=== PATIENT | male | born 1945 | race African-American/Black ===

== ENCOUNTER 2019-03-02 18:54 | Inpatient (IN) ==
[2019-03-02] MEDS ORDERED: SODIUM CHLORIDE 0.9% 500 ML IV STA (19:46)
[2019-03-02 19:59] LABS: Basophils # 0.1 10*3/uL (0.0-0.2); Basophils % 0.2 % (0.0-0.8); Hematocrit 26.2 VOL% (42.0-52.0); Hemoglobin 8.8 GM/DL (14.0-18.0); Immature Granulocytes % 1.2 %; Immature Granulocytes Absolute 0.36 #; Lymphocytes # 0.4 10*3/uL (1.4-4.0); Lymphocytes % 1.3 % (21.2-54.2); Mean Corpuscular HGB Conc 33.6 GM/DL (32-36); Mean Corpuscular Volume 91.6 FL (87-102); Mean Platelet Volume 8.7 FL (9.6-12.0); Neutrophils % 92.3 % (38.7-73.9); Platelet Count 327 T/CUMM (130-400); Red Blood Count 2.86 MC/CUMM (3.8-5.5); Red Cell Distribution Width 14.6 % (9.3-17.3); White Blood Count 30.3 T/CUMM (4-12)
[2019-03-02 20:18] LABS: Band Neutrophils 3 % (0-10); Lymphocytes 1 % (20-55); Segmented Neutrophils 90 % (50-85); Total Cells Counted 100
[2019-03-02 20:19] LABS: Platelet Estimate Adequate
[2019-03-02 20:35] LABS: Alanine Aminotransferase 64 U/L (16-61); Albumin 2.1 G/DL (3.4-5.0); Alkaline Phosphatase 107 U/L (45-117); Aspartate Amino Transferase 59 U/L (0-37); Bilirubin,Total < 0.39 MG/DL (0.2-1.0); Blood Urea Nitrogen 64 MG/DL (7-18); Calcium 8.3 MG/DL (8.5-10.1); Estimated Glom Filtration Rate 23 ML/MIN; Glucose 130 MG/DL (74-106); Osmolality,Calculated 285.4 MOS/KG (273-304); Thyroid Stimulating Hormone 0.352 uIU/ml (0.358-3.74)
[2019-03-02 21:04] LABS: Apearance,Urine Slightly Hazy (Clear); Bacteria,Urine Many /HPF (Few); Bilirubin,Urine Negative (Negative); Blood, Urine Small mg/dL (Negative); Glucose,Urine (UA) Negative (Negative); Hyaline Casts,Urine 23 /LPF (0-3); Ketones,Urine Negative (Negative); Mucus,Urine Occasional /LPF (Occasional); Nitrite,Urine Negative (Negative); Protein,Urine Negative; RBC,Urine 2 /HPF (0-4); Squamous Epithelial Cell,Urine Occasional /HPF (0-10); Urine Color Yellow (Yellow); Urine Specific Gravity 1.014 (1.001-1.035); Urine Urobilinogen < 2.0 EU/DL (0.2-1.0); WBC,Urine 11 /HPF (0-6)
[2019-03-02] MEDS ORDERED: VANCOMYCIN INJ 1,500 MG in SODIUM CHLORIDE 0.9% 250 ML IV STA (21:44)
[2019-03-02] MEDS ORDERED: CEFEPIME 1,000 MG in SODIUM CHLORIDE 0.9% 100 ML IV STA (21:45)
[2019-03-02] MEDS ORDERED: VANCOMYCIN 1,000 MG VIAL ONE (21:53)
[2019-03-02] MEDS ORDERED: ONDANSETRON 4 MG/2 ML VIAL IV PRN (23:12)
[2019-03-02] MEDS ORDERED: ACETAMINOPHEN 325 MG TABLET PO PRN (23:12)
[2019-03-02] MEDS ORDERED: guaiFENesin/DM ER 600-30 MG TABLET PO PRN (23:12)
[2019-03-02] MEDS ORDERED: DEXTROSE 50% 25 GM/50 ML SYRINGE IV PRN (23:12)
[2019-03-02] MEDS ORDERED: DOCUSATE SODIUM 100 MG CAPSULE PO PRN (23:12)
[2019-03-02] MEDS ORDERED: PROMETHAZINE 25 MG TABLET PO PRN (23:12)
[2019-03-02] MEDS ORDERED: GLUCAGON 1 MG VIAL IM PRN (23:12)
[2019-03-03] MEDS: metroNIDAZOLE INJ 500 MG in PREMIX 1 EACH IV SCH ×3 (02:08→15:53)
[2019-03-03] MEDS: SODIUM CHLORIDE 0.9% 1,000 ML IV SCH ×3 (02:08→23:21)
[2019-03-03] MEDS: HEPARIN 5,000 UNIT/1 ML VIAL SUBCUT SCH ×4 (03:10→23:29)
[2019-03-03] MEDS: INSULIN LISPRO 100 UNIT/ML SUBCUT SCH ×5 (03:38→23:36)
[2019-03-03 05:07] LABS: Basophils % 0.1 % (0.0-0.8); Eosinophils # 0.1 10*3/uL (0.0-0.87); Eosinophils % 0.2 % (0.00-10.9); Hematocrit 26.7 VOL% (42.0-52.0); Hemoglobin 8.8 GM/DL (14.0-18.0); Immature Granulocytes % 0.9 %; Immature Granulocytes Absolute 0.21 #; Lymphocytes # 0.5 10*3/uL (1.4-4.0); Lymphocytes % 2.2 % (21.2-54.2); Mean Corpuscular Volume 91.1 FL (87-102); Mean Platelet Volume 8.9 FL (9.6-12.0); Monocytes % 4.8 % (1.7-12.7); Neutrophils % 91.8 % (38.7-73.9); Platelet Count 355 T/CUMM (130-400); Red Blood Count 2.93 MC/CUMM (3.8-5.5); Red Cell Distribution Width 14.5 % (9.3-17.3); White Blood Count 22.7 T/CUMM (4-12)
[2019-03-03 05:40] LABS: Calcium 8.4 MG/DL (8.5-10.1); Osmolality,Calculated 291.7 MOS/KG (273-304)
[2019-03-03 05:47] LABS: Anisocytosis 1+; Band Neutrophils 1 % (0-10); Lymphocytes 5 % (20-55); Ovalocytes Few; Segmented Neutrophils 90 % (50-85); Total Cells Counted 100
[2019-03-03 05:48] LABS: Platelet Estimate Normal
[2019-03-03] MEDS: CEFEPIME 1,000 MG in SODIUM CHLORIDE 0.9% 100 ML IV SCH ×2 (09:55→23:20)
[2019-03-03] MEDS: PANTOPRAZOLE 40 MG TABLET PO SCH (13:08)
[2019-03-03] MEDS: FERROUS SULFATE 325 MG TABLET PO SCH ×2 (15:52→23:25)
[2019-03-03] MEDS: ISOSORBIDE DINITRATE 20 MG TABLET PO SCH (23:22)
[2019-03-03] MEDS: risperiDONE 0.25 MG TABLET PO SCH (23:23)
[2019-03-03] MEDS: buPROPion 75 MG TABLET PO SCH (23:24)
[2019-03-03] MEDS: OMEGA 3 ACID ETHYL ESTERS 1 GM CAPSULE PO SCH (23:25)
[2019-03-03] MEDS: CARBOXYMETHYLCELLULOSE 1% OPH SOLN BOTH EYES SCH (23:27)
[2019-03-04] MEDS: dilTIAZem Drip 125 MG/125 ML PREMIX IV SCH (00:37)
[2019-03-04] MEDS: metroNIDAZOLE INJ 500 MG in PREMIX 1 EACH IV SCH ×4 (00:39→23:29)
[2019-03-04 05:59] LABS: Basophils % 0.2 % (0.0-0.8); Hematocrit 30.3 VOL% (42.0-52.0); Hemoglobin 9.9 GM/DL (14.0-18.0); Immature Granulocytes Absolute 0.52 #; Lymphocytes # 0.4 10*3/uL (1.4-4.0); Lymphocytes % 2.4 % (21.2-54.2); Mean Corpuscular HGB Conc 32.7 GM/DL (32-36); Mean Corpuscular Volume 92.9 FL (87-102); Monocytes % 6.1 % (1.7-12.7); NRBC # 0.02 10*3/uL; Neutrophils % 88.3 % (38.7-73.9); Platelet Count 447 T/CUMM (130-400); Red Blood Count 3.26 MC/CUMM (3.8-5.5); Red Cell Distribution Width 15.1 % (9.3-17.3); White Blood Count 17.3 T/CUMM (4-12)
[2019-03-04 06:18] LABS: Calcium 8.5 MG/DL (8.5-10.1)
[2019-03-04] MEDS: SODIUM CHLORIDE 0.9% 1,000 ML IV SCH ×2 (06:31→23:27)
[2019-03-04 06:33] LABS: Lymphocytes 2 % (20-55); Platelet Estimate Adequate; Segmented Neutrophils 92 % (50-85); Total Cells Counted 100
[2019-03-04 06:34] LABS: Burr Cells Slight
[2019-03-04] MEDS: INSULIN LISPRO 100 UNIT/ML SUBCUT SCH ×4 (08:13→21:20)
[2019-03-04] MEDS: CEFEPIME 1,000 MG in SODIUM CHLORIDE 0.9% 100 ML IV SCH ×2 (09:05→21:21)
[2019-03-04] MEDS: FERROUS SULFATE 325 MG TABLET PO SCH ×4 (09:06→21:19)
[2019-03-04] MEDS: PANTOPRAZOLE 40 MG TABLET PO SCH (09:06)
[2019-03-04] MEDS: ISOSORBIDE DINITRATE 20 MG TABLET PO SCH ×2 (09:06→21:20)
[2019-03-04] MEDS: predniSONE 5 MG TABLET PO SCH (09:06)
[2019-03-04] MEDS: buPROPion 75 MG TABLET PO SCH ×2 (09:06→21:21)
[2019-03-04] MEDS: OMEGA 3 ACID ETHYL ESTERS 1 GM CAPSULE PO SCH ×2 (09:06→21:21)
[2019-03-04] MEDS: OXcarbazepine 300 MG TABLET PO SCH (09:06)
[2019-03-04] MEDS: ASPIRIN EC 81 MG TABLET PO SCH (09:06)
[2019-03-04] MEDS: CARBOXYMETHYLCELLULOSE 1% OPH SOLN BOTH EYES SCH ×2 (09:06→21:21)
[2019-03-04] MEDS: HEPARIN 5,000 UNIT/1 ML VIAL SUBCUT SCH (09:07)
[2019-03-04] MEDS: METOPROLOL TARTRATE 100 MG TABLET PO SCH ×2 (09:15→21:22)
[2019-03-04] MEDS: VANCOMYCIN INJ 1,500 MG in SODIUM CHLORIDE 0.9% 500 ML IV SCH (11:35)
[2019-03-04] MEDS ORDERED: AMIODARONE INJ 450 MG in DEXTROSE 5% 241 ML IV SCH (13:00)
[2019-03-04] MEDS: APIXABAN 5 MG TABLET PO SCH ×2 (13:36→21:19)
[2019-03-04] MEDS: AMIODARONE INJ 450 MG in DEXTROSE 5% 241 ML IV SCH (19:10)
[2019-03-04] MEDS: risperiDONE 0.25 MG TABLET PO SCH (21:21)
[2019-03-04] MEDS ORDERED: VANCOMYCIN INJ 1,000 MG in SODIUM CHLORIDE 0.9% 250 ML IV SCH (22:00)
[2019-03-05 06:12] LABS: Risk Ratio 3.87; VLDL CHOLESTEROL 15.6 MG/DL
[2019-03-05] MEDS: INSULIN LISPRO 100 UNIT/ML SUBCUT SCH ×4 (08:47→21:36)
[2019-03-05] MEDS: metroNIDAZOLE INJ 500 MG in PREMIX 1 EACH IV SCH (09:38)
[2019-03-05] MEDS: ISOSORBIDE DINITRATE 20 MG TABLET PO SCH ×2 (09:42→21:36)
[2019-03-05] MEDS: OMEGA 3 ACID ETHYL ESTERS 1 GM CAPSULE PO SCH ×2 (09:42→21:36)
[2019-03-05] MEDS: predniSONE 5 MG TABLET PO SCH (09:42)
[2019-03-05] MEDS: AMIODARONE 200 MG TABLET PO SCH ×2 (09:42→21:36)
[2019-03-05] MEDS: FERROUS SULFATE 325 MG TABLET PO SCH ×3 (09:42→21:36)
[2019-03-05] MEDS: buPROPion 75 MG TABLET PO SCH ×2 (09:42→21:36)
[2019-03-05] MEDS: PANTOPRAZOLE 40 MG TABLET PO SCH (09:42)
[2019-03-05] MEDS: APIXABAN 5 MG TABLET PO SCH ×2 (09:42→21:36)
[2019-03-05] MEDS: OXcarbazepine 300 MG TABLET PO SCH (09:43)
[2019-03-05] MEDS: METOPROLOL TARTRATE 100 MG TABLET PO SCH ×2 (09:43→21:36)
[2019-03-05] MEDS: CEFEPIME 1,000 MG in SODIUM CHLORIDE 0.9% 100 ML IV SCH (09:43)
[2019-03-05] MEDS: CARBOXYMETHYLCELLULOSE 1% OPH SOLN BOTH EYES SCH ×2 (09:43→21:36)
[2019-03-05] MEDS: ASPIRIN EC 81 MG TABLET PO SCH (09:43)
[2019-03-05] MEDS: dilTIAZem Drip 125 MG/125 ML PREMIX IV SCH (09:43)
[2019-03-05] MEDS: VANCOMYCIN INJ 1,500 MG in SODIUM CHLORIDE 0.9% 500 ML IV SCH (11:32)
[2019-03-05] MEDS: AMIODARONE INJ 450 MG in DEXTROSE 5% 241 ML IV SCH (12:54)
[2019-03-05] MEDS ORDERED: AMPICILLIN INJ 1,000 MG in SODIUM CHLORIDE 0.9% 100 ML IV SCH (14:08)
[2019-03-05] MEDS: AMPICILLIN INJ 1,000 MG in SODIUM CHLORIDE 0.9% 100 ML IV SCH ×2 (14:15→21:35)
[2019-03-05] MEDS: risperiDONE 0.25 MG TABLET PO SCH (21:36)
[2019-03-06] MEDS: AMIODARONE INJ 450 MG in DEXTROSE 5% 241 ML IV SCH (01:46)
[2019-03-06] MEDS: dilTIAZem Drip 125 MG/125 ML PREMIX IV SCH (01:46)
[2019-03-06] MEDS: AMPICILLIN INJ 1,000 MG in SODIUM CHLORIDE 0.9% 100 ML IV SCH ×2 (02:11→09:43)
[2019-03-06 04:40] LABS: Basophils # 0.1 10*3/uL (0.0-0.2); Basophils % 0.3 % (0.0-0.8); Eosinophils # 0.1 10*3/uL (0.0-0.87); Eosinophils % 0.4 % (0.00-10.9); Hematocrit 28.8 VOL% (42.0-52.0); Hemoglobin 9.6 GM/DL (14.0-18.0); Immature Granulocytes % 5.1 %; Immature Granulocytes Absolute 0.94 #; Lymphocytes # 0.6 10*3/uL (1.4-4.0); Mean Corpuscular HGB Conc 33.3 GM/DL (32-36); Mean Platelet Volume 8.3 FL (9.6-12.0); NRBC # 0.04 10*3/uL; Neutrophils % 86.2 % (38.7-73.9); Platelet Count 467 T/CUMM (130-400); Red Blood Count 3.13 MC/CUMM (3.8-5.5); Red Cell Distribution Width 15.3 % (9.3-17.3); White Blood Count 18.5 T/CUMM (4-12)
[2019-03-06 05:10] LABS: Band Neutrophils 1 % (0-10); Hypochromasia 1+; Lymphocytes 6 % (20-55); Ovalocytes Slight; Platelet Estimate Adequate; Segmented Neutrophils 87 % (50-85); Total Cells Counted 100
[2019-03-06 05:11] LABS: Calcium 7.9 MG/DL (8.5-10.1); Osmolality,Calculated 281.3 MOS/KG (273-304)
[2019-03-06] MEDS ORDERED: POTASSIUM CHLORIDE 20 MEQ TABLET PO PRN (07:32)
[2019-03-06] MEDS ORDERED: POTASSIUM CHLORIDE 20 MEQ TABLET PO ONE (09:01)
[2019-03-06] MEDS: ISOSORBIDE DINITRATE 20 MG TABLET PO SCH (09:39)
[2019-03-06] MEDS: ASPIRIN EC 81 MG TABLET PO SCH (09:39)
[2019-03-06] MEDS: OXcarbazepine 300 MG TABLET PO SCH (09:39)
[2019-03-06] MEDS: OMEGA 3 ACID ETHYL ESTERS 1 GM CAPSULE PO SCH (09:39)
[2019-03-06] MEDS: AMIODARONE 200 MG TABLET PO SCH (09:40)
[2019-03-06] MEDS: predniSONE 5 MG TABLET PO SCH (09:41)
[2019-03-06] MEDS: APIXABAN 5 MG TABLET PO SCH (09:41)
[2019-03-06] MEDS: PANTOPRAZOLE 40 MG TABLET PO SCH (09:41)
[2019-03-06] MEDS: FERROUS SULFATE 325 MG TABLET PO SCH (09:41)
[2019-03-06] MEDS: METOPROLOL TARTRATE 100 MG TABLET PO SCH (09:42)
[2019-03-06] MEDS: buPROPion 75 MG TABLET PO SCH (09:42)
[2019-03-06] MEDS: INSULIN LISPRO 100 UNIT/ML SUBCUT SCH ×2 (09:57→12:23)
[2019-03-06] MEDS: CARBOXYMETHYLCELLULOSE 1% OPH SOLN BOTH EYES SCH (10:02)
[2019-03-06] MEDS ORDERED: LEVOFLOXACIN 500 MG TABLET PO SCH (11:00)
[2019-03-06 11:59] VITALS: BP 158/73
[2019-03-10] MEDS ORDERED: ERGOCALCIFEROL 50,000 UNIT CAPSULE PO SCH (09:00)
== END 2019-03-06 14:40 | DRG 871 ==
LOC: EDUNIT# → N.ED 18:54 → SUATTDRO 23:12 → N.EDINP 23:12 → N.TELEN 03-03 00:52
PROVIDERS: ADMIT Internal Medicine; ATTEND Internal Medicine

== ENCOUNTER 2019-03-14 16:47 | Inpatient (IN) ==
[2019-03-14] MEDS ORDERED: VANCOMYCIN INJ 1,000 MG in SODIUM CHLORIDE 0.9% 250 ML IV STA (17:11)
[2019-03-14 18:09] LABS: Basophils # 0.1 10*3/uL (0.0-0.2); Basophils % 0.4 % (0.0-0.8); Eosinophils # 0.2 10*3/uL (0.0-0.87); Eosinophils % 1.5 % (0.00-10.9); Hemoglobin 9.9 GM/DL (14.0-18.0); Immature Granulocytes % 1.3 %; Immature Granulocytes Absolute 0.16 #; Lymphocytes # 0.6 10*3/uL (1.4-4.0); Lymphocytes % 4.8 % (21.2-54.2); Mean Corpuscular HGB Conc 31.9 GM/DL (32-36); Mean Corpuscular Volume 95.1 FL (87-102); Mean Platelet Volume 7.7 FL (9.6-12.0); Monocytes % 4.1 % (1.7-12.7); Neutrophils % 87.9 % (38.7-73.9); Platelet Count 726 T/CUMM (130-400); Red Blood Count 3.26 MC/CUMM (3.8-5.5); White Blood Count 12.2 T/CUMM (4-12)
[2019-03-14 18:17] LABS: PT Patient Result 10.7 SECS (9.6-12.2)
[2019-03-14 18:21] LABS: Alanine Aminotransferase 24 U/L (16-61); Albumin 2.3 G/DL (3.4-5.0); Alkaline Phosphatase 84 U/L (45-117); Amylase 154 U/L (25-115); Aspartate Amino Transferase 16 U/L (0-37); Bilirubin,Total < 0.39 MG/DL (0.2-1.0); Blood Urea Nitrogen 18 MG/DL (7-18); Calcium 8.7 MG/DL (8.5-10.1); Estimated Glom Filtration Rate 49 ML/MIN; Glucose 132 MG/DL (74-106); Osmolality,Calculated 276.8 MOS/KG (273-304); Total Protein 7.4 G/DL (6.4-8.3)
[2019-03-14 18:32] LABS: Troponin I < 0.015 NG/ML (0.00-0.045)
[2019-03-14 18:41] LABS: Apearance,Urine CLEAR (Clear); Bilirubin,Urine Negative (Negative); Blood, Urine Negative (Negative); Glucose,Urine (UA) Negative (Negative); Hyaline Casts,Urine 7 /LPF (0-3); Ketones,Urine Negative (Negative); Mucus,Urine Occasional /LPF (Occasional); Nitrite,Urine Negative (Negative); Protein,Urine Negative; RBC,Urine 1 /HPF (0-4); Squamous Epithelial Cell,Urine Occasional /HPF (0-10); Urine Color Yellow (Yellow); Urine Urobilinogen < 2.0 EU/DL (0.2-1.0); WBC,Urine 2 /HPF (0-6)
[2019-03-14 19:12] LABS: Eosinophils 1 % (0-10); Lymphocytes 7 % (20-55); Segmented Neutrophils 87 % (50-85); Total Cells Counted 100
[2019-03-14 19:13] LABS: Platelet Estimate Increased; Polychromasia Few
[2019-03-14 19:14] LABS: Anisocytosis Slight; Macrocytosis 1+; Toxic Granulation 1+
[2019-03-14] MEDS ORDERED: GLUCAGON 1 MG VIAL IM PRN (21:44)
[2019-03-14] MEDS ORDERED: DOCUSATE SODIUM 100 MG CAPSULE PO PRN (21:44)
[2019-03-14] MEDS ORDERED: ACETAMINOPHEN 325 MG TABLET PO PRN (21:44)
[2019-03-14] MEDS ORDERED: ONDANSETRON 4 MG/2 ML VIAL IV PRN (21:44)
[2019-03-14] MEDS ORDERED: DEXTROSE 50% 25 GM/50 ML VIAL IV PRN (21:44)
[2019-03-14] MEDS: SODIUM CHLORIDE 0.9% 1,000 ML IV SCH (22:23)
[2019-03-14] MEDS: INSULIN REGULAR 100 UNIT/ML SUBCUT SCH (22:24)
[2019-03-15 06:25] LABS: Basophils # 0.1 10*3/uL (0.0-0.2); Basophils % 0.5 % (0.0-0.8); Eosinophils # 0.2 10*3/uL (0.0-0.87); Eosinophils % 1.9 % (0.00-10.9); Hematocrit 31.5 VOL% (42.0-52.0); Hemoglobin 9.8 GM/DL (14.0-18.0); Immature Granulocytes % 1.1 %; Immature Granulocytes Absolute 0.11 #; Lymphocytes # 0.7 10*3/uL (1.4-4.0); Lymphocytes % 6.5 % (21.2-54.2); Mean Corpuscular HGB Conc 31.1 GM/DL (32-36); Mean Corpuscular Volume 96.6 FL (87-102); Mean Platelet Volume 7.5 FL (9.6-12.0); Monocytes % 5.8 % (1.7-12.7); Neutrophils % 84.2 % (38.7-73.9); Platelet Count 628 T/CUMM (130-400); Red Blood Count 3.26 MC/CUMM (3.8-5.5); White Blood Count 10.3 T/CUMM (4-12)
[2019-03-15 06:38] LABS: Calcium 8.4 MG/DL (8.5-10.1); Osmolality,Calculated 278.4 MOS/KG (273-304)
[2019-03-15] MEDS: INSULIN REGULAR 100 UNIT/ML SUBCUT SCH ×4 (11:14→21:08)
[2019-03-15] MEDS: SODIUM CHLORIDE 0.9% 1,000 ML IV SCH (11:40)
[2019-03-15] MEDS ORDERED: LIDOCAINE 1%/EPI INJ 20 ML VIAL ONE (12:14)
[2019-03-15] MEDS ORDERED: BUPIVACAINE MPF 0.25% 30 ML VIAL ONE (12:15)
[2019-03-15] MEDS ORDERED: DIAZEPAM 5 MG TABLET PO ONE (12:39)
[2019-03-15] MEDS ORDERED: KETAMINE 500 MG/10 ML VIAL ONE (13:03)
[2019-03-15] MEDS ORDERED: MIDAZOLAM 2 MG/2 ML VIAL ONE (13:03)
[2019-03-15] MEDS: VANCOMYCIN INJ 1,250 MG in SODIUM CHLORIDE 0.9% 250 ML IV SCH (14:19)
[2019-03-15] MEDS: risperiDONE 0.25 MG TABLET PO SCH (21:06)
[2019-03-15] MEDS: METOPROLOL TARTRATE 100 MG TABLET PO SCH (21:06)
[2019-03-15] MEDS: AMIODARONE 200 MG TABLET PO SCH (21:06)
[2019-03-15] MEDS: buPROPion 75 MG TABLET PO SCH (21:07)
[2019-03-15] MEDS: ENALAPRIL 20 MG TABLET PO SCH (21:07)
[2019-03-15] MEDS: CARBOXYMETHYLCELLULOSE 1% OPH SOLN BOTH EYES SCH (21:08)
[2019-03-15] MEDS: OMEGA 3 ACID ETHYL ESTERS 1 GM CAPSULE PO SCH (21:08)
[2019-03-15] MEDS: ISOSORBIDE DINITRATE 20 MG TABLET PO SCH (21:08)
[2019-03-16 05:28] LABS: Basophils # 0.1 10*3/uL (0.0-0.2); Basophils % 0.5 % (0.0-0.8); Eosinophils # 0.2 10*3/uL (0.0-0.87); Eosinophils % 1.6 % (0.00-10.9); Hematocrit 27.5 VOL% (42.0-52.0); Hemoglobin 8.6 GM/DL (14.0-18.0); Lymphocytes # 0.6 10*3/uL (1.4-4.0); Lymphocytes % 5.8 % (21.2-54.2); Mean Corpuscular HGB Conc 31.3 GM/DL (32-36); Mean Corpuscular Volume 96.8 FL (87-102); Mean Platelet Volume 7.6 FL (9.6-12.0); Monocytes % 5.8 % (1.7-12.7); Neutrophils % 85.3 % (38.7-73.9); Platelet Count 557 T/CUMM (130-400); Red Blood Count 2.84 MC/CUMM (3.8-5.5); White Blood Count 10.3 T/CUMM (4-12)
[2019-03-16] MEDS: ASPIRIN EC 81 MG TABLET PO SCH (08:59)
[2019-03-16] MEDS: AMIODARONE 200 MG TABLET PO SCH ×2 (08:59→21:28)
[2019-03-16] MEDS: POLYETHYLENE GLYCOL POWDER 17 GM PACK PO SCH (08:59)
[2019-03-16] MEDS: sitaGLIPtin 25 MG TABLET PO SCH (08:59)
[2019-03-16] MEDS: ENALAPRIL 20 MG TABLET PO SCH ×2 (08:59→21:29)
[2019-03-16] MEDS: OMEGA 3 ACID ETHYL ESTERS 1 GM CAPSULE PO SCH ×2 (08:59→21:29)
[2019-03-16] MEDS: buPROPion 75 MG TABLET PO SCH ×2 (09:00→21:29)
[2019-03-16] MEDS: OXcarbazepine 300 MG TABLET PO SCH (09:00)
[2019-03-16] MEDS: predniSONE 5 MG TABLET PO SCH (09:00)
[2019-03-16] MEDS: ISOSORBIDE DINITRATE 20 MG TABLET PO SCH ×2 (09:01→21:28)
[2019-03-16] MEDS: CARBOXYMETHYLCELLULOSE 1% OPH SOLN BOTH EYES SCH ×2 (09:01→21:29)
[2019-03-16] MEDS: METOPROLOL TARTRATE 100 MG TABLET PO SCH ×2 (09:01→21:29)
[2019-03-16] MEDS: INSULIN REGULAR 100 UNIT/ML SUBCUT SCH ×4 (09:29→21:28)
[2019-03-16] MEDS: SODIUM CHLORIDE 0.9% 1,000 ML IV SCH (09:58)
[2019-03-16] MEDS: VANCOMYCIN INJ 1,250 MG in SODIUM CHLORIDE 0.9% 250 ML IV SCH (11:56)
[2019-03-16] MEDS: COLLAGENASE OINT 30 GM TUBE TOP SCH (13:13)
[2019-03-16] MEDS: risperiDONE 0.25 MG TABLET PO SCH (21:29)
[2019-03-17] MEDS: SODIUM CHLORIDE 0.9% 1,000 ML IV SCH ×3 (02:27→16:34)
[2019-03-17] MEDS: INSULIN REGULAR 100 UNIT/ML SUBCUT SCH ×4 (08:41→21:37)
[2019-03-17] MEDS: ASPIRIN EC 81 MG TABLET PO SCH (10:01)
[2019-03-17] MEDS: ISOSORBIDE DINITRATE 20 MG TABLET PO SCH ×2 (10:01→21:37)
[2019-03-17] MEDS: OXcarbazepine 300 MG TABLET PO SCH (10:02)
[2019-03-17] MEDS: METOPROLOL TARTRATE 100 MG TABLET PO SCH ×2 (10:02→21:47)
[2019-03-17] MEDS: predniSONE 5 MG TABLET PO SCH (10:03)
[2019-03-17] MEDS: OMEGA 3 ACID ETHYL ESTERS 1 GM CAPSULE PO SCH ×2 (10:03→21:47)
[2019-03-17] MEDS: AMIODARONE 200 MG TABLET PO SCH ×2 (10:03→21:47)
[2019-03-17] MEDS: sitaGLIPtin 25 MG TABLET PO SCH (10:03)
[2019-03-17] MEDS: ENALAPRIL 20 MG TABLET PO SCH ×2 (10:04→21:54)
[2019-03-17] MEDS: COLLAGENASE OINT 30 GM TUBE TOP SCH (10:09)
[2019-03-17] MEDS: buPROPion 75 MG TABLET PO SCH ×2 (10:09→21:47)
[2019-03-17] MEDS: CARBOXYMETHYLCELLULOSE 1% OPH SOLN BOTH EYES SCH ×2 (10:09→22:04)
[2019-03-17] MEDS: POLYETHYLENE GLYCOL POWDER 17 GM PACK PO SCH ×2 (10:10→14:16)
[2019-03-17] MEDS: VANCOMYCIN INJ 1,250 MG in SODIUM CHLORIDE 0.9% 250 ML IV SCH (14:22)
[2019-03-17] MEDS: risperiDONE 0.25 MG TABLET PO SCH (21:47)
[2019-03-18 06:15] LABS: Basophils % 0.4 % (0.0-0.8); Eosinophils # 0.2 10*3/uL (0.0-0.87); Eosinophils % 2.1 % (0.00-10.9); Hematocrit 24.5 VOL% (42.0-52.0); Hemoglobin 7.8 GM/DL (14.0-18.0); Immature Granulocytes Absolute 0.09 #; Lymphocytes # 0.8 10*3/uL (1.4-4.0); Lymphocytes % 8.4 % (21.2-54.2); Mean Corpuscular HGB Conc 31.8 GM/DL (32-36); Mean Corpuscular Volume 94.2 FL (87-102); Mean Platelet Volume 7.5 FL (9.6-12.0); Monocytes % 5.6 % (1.7-12.7); Neutrophils % 82.5 % (38.7-73.9); Platelet Count 391 T/CUMM (130-400); Red Cell Distribution Width 14.7 % (9.3-17.3); White Blood Count 9.1 T/CUMM (4-12)
[2019-03-18 06:32] LABS: Osmolality,Calculated 283.1 MOS/KG (273-304)
[2019-03-18] MEDS: ASPIRIN EC 81 MG TABLET PO SCH (08:46)
[2019-03-18] MEDS: INSULIN REGULAR 100 UNIT/ML SUBCUT SCH ×2 (08:46→12:57)
[2019-03-18] MEDS: OXcarbazepine 300 MG TABLET PO SCH (08:47)
[2019-03-18] MEDS: ISOSORBIDE DINITRATE 20 MG TABLET PO SCH (08:47)
[2019-03-18] MEDS: OMEGA 3 ACID ETHYL ESTERS 1 GM CAPSULE PO SCH (08:47)
[2019-03-18] MEDS: POLYETHYLENE GLYCOL POWDER 17 GM PACK PO SCH (08:47)
[2019-03-18] MEDS: sitaGLIPtin 25 MG TABLET PO SCH (08:49)
[2019-03-18] MEDS: buPROPion 75 MG TABLET PO SCH (08:49)
[2019-03-18] MEDS: predniSONE 5 MG TABLET PO SCH (08:49)
[2019-03-18] MEDS: METOPROLOL TARTRATE 100 MG TABLET PO SCH (08:50)
[2019-03-18] MEDS: ENALAPRIL 20 MG TABLET PO SCH (08:50)
[2019-03-18] MEDS: COLLAGENASE OINT 30 GM TUBE TOP SCH (08:51)
[2019-03-18] MEDS: AMIODARONE 200 MG TABLET PO SCH (08:51)
[2019-03-18] MEDS: SODIUM CHLORIDE 0.9% 1,000 ML IV SCH (08:52)
[2019-03-18] MEDS: CARBOXYMETHYLCELLULOSE 1% OPH SOLN BOTH EYES SCH (09:01)
[2019-03-18 11:20] VITALS: BP 129/67
[2019-03-22] MEDS ORDERED: ERGOCALCIFEROL 50,000 UNIT CAPSULE PO SCH (09:00)
== END 2019-03-18 14:05 | DRG 580 ==
LOC: EDUNIT# → N.ED 16:47 → SUATTDRO 19:31 → N.EDINP 19:31 → N.3E 20:40
PROVIDERS: ADMIT Internal Medicine; ATTEND Internal Medicine

== ENCOUNTER 2021-02-23 11:09 | Inpatient (IN) ==
[2021-02-23 14:19] LABS: Basophils % 0.2 % (0.0-0.8); Eosinophils # 0.1 10*3/uL (0.0-0.87); Eosinophils % 0.5 % (0.00-10.9); Hematocrit 28.1 VOL% (42.0-52.0); Immature Granulocytes % 0.7 %; Immature Granulocytes Absolute 0.07 #; Lymphocytes % 9.6 % (21.2-54.2); Mean Corpuscular Volume 94.3 FL (87-102); Mean Platelet Volume 8.6 FL (9.6-12.0); Monocytes % 8.3 % (1.7-12.7); Neutrophils % 80.7 % (38.7-73.9); Platelet Count 317 T/CUMM (130-400); Red Blood Count 2.98 MC/CUMM (3.8-5.5); Red Cell Distribution Width 14.6 % (9.3-17.3); White Blood Count 10.3 T/CUMM (4-12)
[2021-02-23 14:38] LABS: Alanine Aminotransferase 14 U/L (16-61); Albumin 2.6 G/DL (3.4-5.0); Alkaline Phosphatase 54 U/L (45-117); Aspartate Amino Transferase 12 U/L (0-37); Bilirubin,Total < 0.39 MG/DL (0.20-1.00); Blood Urea Nitrogen 40 MG/DL (7-18); Calcium 8.9 MG/DL (8.5-10.1); Carbon Dioxide 23 MMOL/L (21-32); Estimated Glom Filtration Rate 28 ML/MIN; Glucose 101 MG/DL (74-106); Osmolality,Calculated 282.8 MOS/KG (273-304); Potassium 3.9 MMOL/L (3.5-5.1); Sodium 137 MMOL/L (136-145); Total Protein 6.6 G/DL (6.4-8.2)
[2021-02-23 14:55] LABS: Ferritin 187.8 ng/mL (26-388)
[2021-02-23] MEDS ORDERED: SODIUM CHLORIDE 0.9% 1,000 ML IV STA (14:55)
[2021-02-23] MEDS ORDERED: AZITHROMYCIN INJ 500 MG in SODIUM CHLORIDE 0.9% 250 ML IV ONE (15:15)
[2021-02-23] MEDS ORDERED: ONDANSETRON 4 MG/2 ML VIAL IV PRN (15:15)
[2021-02-23] MEDS ORDERED: ACETAMINOPHEN 325 MG TABLET PO PRN (15:15)
[2021-02-23] MEDS ORDERED: SODIUM CHLORIDE 0.9% 1,000 ML IV SCH (15:30)
[2021-02-23] MEDS ORDERED: DEXTROSE 50% 25 GM/50 ML SYRINGE IV PRN (16:02)
[2021-02-23] MEDS ORDERED: GLUCAGON 1 MG VIAL IM PRN (16:02)
[2021-02-23] MEDS: INSULIN REGULAR 100 UNIT/ML SUBCUT SCH (17:19)
[2021-02-24] MEDS: INSULIN REGULAR 100 UNIT/ML SUBCUT SCH ×5 (00:09→21:08)
[2021-02-24] MEDS: FAMOTIDINE 20 MG TABLET PO SCH ×3 (02:30→21:08)
[2021-02-24] MEDS: ASCORBIC ACID 500 MG TABLET PO SCH ×3 (02:30→21:09)
[2021-02-24 07:25] LABS: Basophils % 0.3 % (0.0-0.8); Eosinophils # 0.1 10*3/uL (0.0-0.87); Eosinophils % 1.6 % (0.00-10.9); Hematocrit 28.8 VOL% (42.0-52.0); Hemoglobin 9.1 GM/DL (14.0-18.0); Immature Granulocytes % 0.6 %; Immature Granulocytes Absolute 0.04 #; Lymphocytes # 0.9 10*3/uL (1.4-4.0); Lymphocytes % 13.8 % (21.2-54.2); Mean Corpuscular HGB Conc 31.6 GM/DL (32-36); Mean Corpuscular Volume 94.1 FL (87-102); Mean Platelet Volume 8.5 FL (9.6-12.0); Monocytes % 9.1 % (1.7-12.7); Neutrophils % 74.6 % (38.7-73.9); Platelet Count 295 T/CUMM (130-400); Red Blood Count 3.06 MC/CUMM (3.8-5.5); Red Cell Distribution Width 14.5 % (9.3-17.3); White Blood Count 6.8 T/CUMM (4-12)
[2021-02-24 07:47] LABS: Alanine Aminotransferase 10 U/L (16-61); Albumin 2.4 G/DL (3.4-5.0); Alkaline Phosphatase 53 U/L (45-117); Aspartate Amino Transferase 11 U/L (0-37); Bilirubin,Total < 0.39 MG/DL (0.20-1.00); Blood Urea Nitrogen 35 MG/DL (7-18); Calcium 8.5 MG/DL (8.5-10.1); Carbon Dioxide 21 MMOL/L (21-32); Estimated Glom Filtration Rate 34 ML/MIN; Glucose 81 MG/DL (74-106); Osmolality,Calculated 287.3 MOS/KG (273-304); Potassium 3.8 MMOL/L (3.5-5.1); Sodium 141 MMOL/L (136-145); Total Protein 6.5 G/DL (6.4-8.2)
[2021-02-24] MEDS: CHOLECALCIFEROL 1,000 UNIT TABLET PO SCH (09:22)
[2021-02-24] MEDS: AZITHROMYCIN 250 MG TABLET PO SCH (09:22)
[2021-02-24] MEDS: DEXAMETHASONE 4 MG/1 ML VIAL IV SCH (09:22)
[2021-02-24] MEDS: ZINC GLUCONATE 50 MG TABLET PO SCH (09:22)
[2021-02-24] MEDS: CETIRIZINE 10 MG TABLET PO SCH (09:23)
[2021-02-24] MEDS: cefTRIAXone 1,000 MG in SODIUM CHLORIDE 0.9% 100 ML IV SCH (10:02)
[2021-02-24] MEDS: OMEGA 3 ACID ETHYL ESTERS 1 GM CAPSULE PO SCH (20:20)
[2021-02-24] MEDS: APIXABAN 5 MG TABLET PO SCH (20:20)
[2021-02-24] MEDS: risperiDONE 0.25 MG TABLET PO SCH (20:21)
[2021-02-24] MEDS: buPROPion 75 MG TABLET PO SCH (20:21)
[2021-02-24] MEDS: CARBOXYMETHYLCELLULOSE 1% OPH SOLN BOTH EYES SCH (20:21)
[2021-02-24] MEDS: MENTHOL/ZINC OXIDE OINT 71 GM JAR TOP SCH (21:08)
[2021-02-25 04:42] LABS: Basophils % 0.2 % (0.0-0.8); Eosinophils # 0.1 10*3/uL (0.0-0.87); Eosinophils % 1.2 % (0.00-10.9); Hematocrit 25.9 VOL% (42.0-52.0); Hemoglobin 8.3 GM/DL (14.0-18.0); Immature Granulocytes % 0.7 %; Immature Granulocytes Absolute 0.04 #; Lymphocytes # 0.7 10*3/uL (1.4-4.0); Lymphocytes % 12.9 % (21.2-54.2); Mean Corpuscular Volume 94.5 FL (87-102); Mean Platelet Volume 8.4 FL (9.6-12.0); Monocytes % 8.5 % (1.7-12.7); Neutrophils % 76.5 % (38.7-73.9); Platelet Count 255 T/CUMM (130-400); Red Blood Count 2.74 MC/CUMM (3.8-5.5); Red Cell Distribution Width 14.3 % (9.3-17.3); White Blood Count 5.7 T/CUMM (4-12)
[2021-02-25 05:04] LABS: Alanine Aminotransferase 10 U/L (16-61); Alkaline Phosphatase 41 U/L (45-117); Aspartate Amino Transferase 10 U/L (0-37); Bilirubin,Total < 0.39 MG/DL (0.20-1.00); Blood Urea Nitrogen 24 MG/DL (7-18); Calcium 7.6 MG/DL (8.5-10.1); Carbon Dioxide 20 MMOL/L (21-32); Estimated Glom Filtration Rate 50 ML/MIN; Glucose 79 MG/DL (74-106); Osmolality,Calculated 285.1 MOS/KG (273-304); Potassium 3.1 MMOL/L (3.5-5.1); Sodium 142 MMOL/L (136-145); Total Protein 5.4 G/DL (6.4-8.2)
[2021-02-25 05:14] LABS: Ferritin 189.9 ng/mL (26-388)
[2021-02-25] MEDS: LINACLOTIDE 145 MCG CAPSULE PO SCH (06:43)
[2021-02-25] MEDS: INSULIN REGULAR 100 UNIT/ML SUBCUT SCH ×4 (08:07→21:45)
[2021-02-25] MEDS: MENTHOL/ZINC OXIDE OINT 71 GM JAR TOP SCH ×3 (10:30→21:49)
[2021-02-25] MEDS: DEXAMETHASONE 4 MG/1 ML VIAL IV SCH (10:30)
[2021-02-25] MEDS: OMEGA 3 ACID ETHYL ESTERS 1 GM CAPSULE PO SCH ×2 (10:30→21:43)
[2021-02-25] MEDS: OXcarbazepine 300 MG TABLET PO SCH (10:30)
[2021-02-25] MEDS: buPROPion 75 MG TABLET PO SCH ×2 (10:30→21:44)
[2021-02-25] MEDS: CETIRIZINE 10 MG TABLET PO SCH (10:30)
[2021-02-25] MEDS: FUROSEMIDE 40 MG TABLET PO SCH (10:30)
[2021-02-25] MEDS: cefTRIAXone 1,000 MG in SODIUM CHLORIDE 0.9% 100 ML IV SCH (10:30)
[2021-02-25] MEDS: CHOLECALCIFEROL 1,000 UNIT TABLET PO SCH (10:30)
[2021-02-25] MEDS: APIXABAN 5 MG TABLET PO SCH ×2 (10:30→21:44)
[2021-02-25] MEDS: FAMOTIDINE 20 MG TABLET PO SCH ×2 (10:30→21:43)
[2021-02-25] MEDS: MULTIVITAMIN (CENTRUM) TABLET PO SCH (10:30)
[2021-02-25] MEDS: ZINC GLUCONATE 50 MG TABLET PO SCH (10:30)
[2021-02-25] MEDS: ASCORBIC ACID 500 MG TABLET PO SCH ×2 (10:30→21:43)
[2021-02-25] MEDS: AMIODARONE 200 MG TABLET PO SCH (10:30)
[2021-02-25] MEDS: POLYETHYLENE GLYCOL POWDER 17 GM PACK PO SCH (10:30)
[2021-02-25] MEDS: ASPIRIN EC 81 MG TABLET PO SCH (10:30)
[2021-02-25] MEDS: AZITHROMYCIN 250 MG TABLET PO SCH (10:30)
[2021-02-25] MEDS: CARBOXYMETHYLCELLULOSE 1% OPH SOLN BOTH EYES SCH ×2 (10:49→21:46)
[2021-02-25] MEDS: ALBUTEROL/IPRATROPIUM 3 ML NEB RESP TX SCH (14:47)
[2021-02-25] MEDS: AZITHROMYCIN INJ 500 MG in SODIUM CHLORIDE 0.9% 250 ML IV SCH (15:23)
[2021-02-25] MEDS ORDERED: FUROSEMIDE 40 MG/4 ML VIAL IV ONE (15:27)
[2021-02-25] MEDS: POTASSIUM CHLORIDE RIDER 10 MEQ/100 ML PREMIX IV SCH ×3 (16:59→21:47)
[2021-02-25] MEDS ORDERED: POTASSIUM CHLORIDE RIDER 10 MEQ/100 ML PREMIX IV SCH (19:30)
[2021-02-25] MEDS: risperiDONE 0.25 MG TABLET PO SCH (21:44)
[2021-02-25] MEDS: methylPREDNISolone SOD SUC 40 MG/1 ML VIAL IV SCH (21:45)
[2021-02-26] MEDS: ALBUTEROL/IPRATROPIUM 3 ML NEB RESP TX SCH ×3 (01:40→07:05)
[2021-02-26] MEDS: methylPREDNISolone SOD SUC 40 MG/1 ML VIAL IV SCH ×3 (05:40→21:33)
[2021-02-26 06:02] LABS: Basophils % 0.1 % (0.0-0.8); Hematocrit 30.4 VOL% (42.0-52.0); Hemoglobin 9.7 GM/DL (14.0-18.0); Immature Granulocytes % 0.8 %; Immature Granulocytes Absolute 0.06 #; Lymphocytes # 0.7 10*3/uL (1.4-4.0); Mean Corpuscular HGB Conc 31.9 GM/DL (32-36); Mean Corpuscular Volume 93.3 FL (87-102); Mean Platelet Volume 8.4 FL (9.6-12.0); Monocytes % 2.3 % (1.7-12.7); Neutrophils % 86.8 % (38.7-73.9); Platelet Count 315 T/CUMM (130-400); Red Blood Count 3.26 MC/CUMM (3.8-5.5); White Blood Count 7.1 T/CUMM (4-12)
[2021-02-26 06:21] LABS: Alanine Aminotransferase 12 U/L (16-61); Albumin 2.3 G/DL (3.4-5.0); Alkaline Phosphatase 48 U/L (45-117); Aspartate Amino Transferase 14 U/L (0-37); Bilirubin,Total < 0.39 MG/DL (0.20-1.00); Blood Urea Nitrogen 25 MG/DL (7-18); Calcium 8.6 MG/DL (8.5-10.1); Carbon Dioxide 22 MMOL/L (21-32); Estimated Glom Filtration Rate 40 ML/MIN; Glucose 175 MG/DL (74-106); Osmolality,Calculated 293.8 MOS/KG (273-304); Potassium 3.9 MMOL/L (3.5-5.1); Sodium 144 MMOL/L (136-145); Total Protein 6.8 G/DL (6.4-8.2)
[2021-02-26 06:32] LABS: Ferritin 223.9 ng/mL (26-388)
[2021-02-26] MEDS: LINACLOTIDE 145 MCG CAPSULE PO SCH (06:35)
[2021-02-26] MEDS: INSULIN REGULAR 100 UNIT/ML SUBCUT SCH ×4 (08:11→21:33)
[2021-02-26] MEDS: MULTIVITAMIN (CENTRUM) TABLET PO SCH (09:20)
[2021-02-26] MEDS: OXcarbazepine 300 MG TABLET PO SCH (09:21)
[2021-02-26] MEDS: OMEGA 3 ACID ETHYL ESTERS 1 GM CAPSULE PO SCH ×2 (09:21→21:32)
[2021-02-26] MEDS: CHOLECALCIFEROL 1,000 UNIT TABLET PO SCH (09:22)
[2021-02-26] MEDS: AMIODARONE 200 MG TABLET PO SCH (09:22)
[2021-02-26] MEDS: ASCORBIC ACID 500 MG TABLET PO SCH ×2 (09:22→21:32)
[2021-02-26] MEDS: FAMOTIDINE 20 MG TABLET PO SCH ×2 (09:22→21:32)
[2021-02-26] MEDS: ZINC GLUCONATE 50 MG TABLET PO SCH (09:22)
[2021-02-26] MEDS: CETIRIZINE 10 MG TABLET PO SCH (09:22)
[2021-02-26] MEDS: buPROPion 75 MG TABLET PO SCH ×2 (09:22→21:32)
[2021-02-26] MEDS: ASPIRIN EC 81 MG TABLET PO SCH (09:22)
[2021-02-26] MEDS: POLYETHYLENE GLYCOL POWDER 17 GM PACK PO SCH (09:23)
[2021-02-26] MEDS: FUROSEMIDE 40 MG TABLET PO SCH (09:23)
[2021-02-26] MEDS: APIXABAN 5 MG TABLET PO SCH ×2 (09:23→21:32)
[2021-02-26] MEDS: CARBOXYMETHYLCELLULOSE 1% OPH SOLN BOTH EYES SCH (09:24)
[2021-02-26] MEDS: MENTHOL/ZINC OXIDE OINT 71 GM JAR TOP SCH ×3 (09:24→21:33)
[2021-02-26] MEDS: cefTRIAXone 1,000 MG in SODIUM CHLORIDE 0.9% 100 ML IV SCH (09:24)
[2021-02-26] MEDS ORDERED: LINEZOLID INJ 600 MG/300 ML PREMIX IV SCH (10:30)
[2021-02-26] MEDS: ALBUTEROL INHALER 18 GM INH SCH ×2 (14:51→22:10)
[2021-02-26] MEDS: AZITHROMYCIN INJ 500 MG in SODIUM CHLORIDE 0.9% 250 ML IV SCH (14:53)
[2021-02-26] MEDS: risperiDONE 0.25 MG TABLET PO SCH (21:32)
[2021-02-26] MEDS: SENNA 8.6 MG TABLET PO SCH (21:32)
[2021-02-26] MEDS: MELATONIN 3 MG TABLET PO PRN (21:32)
[2021-02-27] MEDS: ALBUTEROL INHALER 18 GM INH SCH ×4 (00:30→21:09)
[2021-02-27 04:58] LABS: Hematocrit 28.8 VOL% (42.0-52.0); Hemoglobin 9.2 GM/DL (14.0-18.0); Immature Granulocytes % 1.7 %; Immature Granulocytes Absolute 0.19 #; Lymphocytes # 0.6 10*3/uL (1.4-4.0); Lymphocytes % 5.7 % (21.2-54.2); Mean Corpuscular HGB Conc 31.9 GM/DL (32-36); Mean Corpuscular Volume 93.2 FL (87-102); Mean Platelet Volume 8.6 FL (9.6-12.0); Monocytes % 2.3 % (1.7-12.7); Neutrophils % 90.3 % (38.7-73.9); Platelet Count 362 T/CUMM (130-400); Red Blood Count 3.09 MC/CUMM (3.8-5.5); Red Cell Distribution Width 14.3 % (9.3-17.3); White Blood Count 11.2 T/CUMM (4-12)
[2021-02-27 05:35] LABS: Alanine Aminotransferase 11 U/L (16-61); Albumin 2.5 G/DL (3.4-5.0); Alkaline Phosphatase 47 U/L (45-117); Aspartate Amino Transferase 18 U/L (0-37); Bilirubin,Total < 0.39 MG/DL (0.20-1.00); Blood Urea Nitrogen 29 MG/DL (7-18); Calcium 8.9 MG/DL (8.5-10.1); Carbon Dioxide 23 MMOL/L (21-32); Estimated Glom Filtration Rate 38 ML/MIN; Glucose 159 MG/DL (74-106); Osmolality,Calculated 291.1 MOS/KG (273-304); Potassium 3.9 MMOL/L (3.5-5.1); Sodium 142 MMOL/L (136-145); Total Protein 6.7 G/DL (6.4-8.2)
[2021-02-27 05:37] LABS: Ferritin 188.2 ng/mL (26-388)
[2021-02-27] MEDS: LINACLOTIDE 145 MCG CAPSULE PO SCH (06:27)
[2021-02-27] MEDS: methylPREDNISolone SOD SUC 40 MG/1 ML VIAL IV SCH (06:27)
[2021-02-27] MEDS: INSULIN REGULAR 100 UNIT/ML SUBCUT SCH ×4 (08:22→21:09)
[2021-02-27] MEDS: APIXABAN 5 MG TABLET PO SCH ×2 (10:17→20:56)
[2021-02-27] MEDS: OXcarbazepine 300 MG TABLET PO SCH (10:17)
[2021-02-27] MEDS: FUROSEMIDE 40 MG TABLET PO SCH (10:17)
[2021-02-27] MEDS: ASPIRIN EC 81 MG TABLET PO SCH (10:18)
[2021-02-27] MEDS: buPROPion 75 MG TABLET PO SCH ×2 (10:18→20:55)
[2021-02-27] MEDS: CETIRIZINE 10 MG TABLET PO SCH (10:18)
[2021-02-27] MEDS: AMIODARONE 200 MG TABLET PO SCH (10:18)
[2021-02-27] MEDS: ZINC GLUCONATE 50 MG TABLET PO SCH (10:18)
[2021-02-27] MEDS: ASCORBIC ACID 500 MG TABLET PO SCH ×2 (10:18→20:56)
[2021-02-27] MEDS: OMEGA 3 ACID ETHYL ESTERS 1 GM CAPSULE PO SCH ×2 (10:18→21:09)
[2021-02-27] MEDS: SENNA 8.6 MG TABLET PO SCH ×2 (10:19→20:55)
[2021-02-27] MEDS: MULTIVITAMIN (CENTRUM) TABLET PO SCH (10:19)
[2021-02-27] MEDS: POLYETHYLENE GLYCOL POWDER 17 GM PACK PO SCH (10:19)
[2021-02-27] MEDS: cefTRIAXone 1,000 MG in SODIUM CHLORIDE 0.9% 100 ML IV SCH (10:19)
[2021-02-27] MEDS: FAMOTIDINE 20 MG TABLET PO SCH ×2 (10:19→20:56)
[2021-02-27] MEDS: CHOLECALCIFEROL 1,000 UNIT TABLET PO SCH (10:19)
[2021-02-27] MEDS: MENTHOL/ZINC OXIDE OINT 71 GM JAR TOP SCH ×3 (10:38→21:09)
[2021-02-27] MEDS ORDERED: FUROSEMIDE 40 MG/4 ML VIAL IV ONE (12:36)
[2021-02-27] MEDS: AZITHROMYCIN INJ 500 MG in SODIUM CHLORIDE 0.9% 250 ML IV SCH (13:15)
[2021-02-27] MEDS: risperiDONE 0.25 MG TABLET PO SCH (20:56)
[2021-02-27] MEDS: MELATONIN 3 MG TABLET PO PRN (20:56)
[2021-02-28] MEDS: ALBUTEROL INHALER 18 GM INH SCH ×4 (02:02→20:32)
[2021-02-28] MEDS: LINACLOTIDE 145 MCG CAPSULE PO SCH (05:53)
[2021-02-28 05:57] LABS: Basophils % 0.2 % (0.0-0.8); Eosinophils % 0.1 % (0.00-10.9); Hematocrit 31.7 VOL% (42.0-52.0); Hemoglobin 9.9 GM/DL (14.0-18.0); Immature Granulocytes % 2.9 %; Immature Granulocytes Absolute 0.36 #; Lymphocytes # 1.2 10*3/uL (1.4-4.0); Lymphocytes % 9.4 % (21.2-54.2); Mean Corpuscular HGB Conc 31.2 GM/DL (32-36); Mean Corpuscular Volume 94.3 FL (87-102); Mean Platelet Volume 8.4 FL (9.6-12.0); Monocytes % 8.3 % (1.7-12.7); NRBC # 0.03 10*3/uL; Neutrophils % 79.1 % (38.7-73.9); Platelet Count 397 T/CUMM (130-400); Red Blood Count 3.36 MC/CUMM (3.8-5.5); Red Cell Distribution Width 14.6 % (9.3-17.3); White Blood Count 12.4 T/CUMM (4-12)
[2021-02-28 06:10] LABS: Ferritin 190.7 ng/mL (26-388)
[2021-02-28 06:11] LABS: Alanine Aminotransferase 73 U/L (16-61); Albumin 2.6 G/DL (3.4-5.0); Alkaline Phosphatase 49 U/L (45-117); Aspartate Amino Transferase 53 U/L (0-37); Bilirubin,Total < 0.39 MG/DL (0.20-1.00); Blood Urea Nitrogen 34 MG/DL (7-18); Calcium 8.9 MG/DL (8.5-10.1); Carbon Dioxide 24 MMOL/L (21-32); Estimated Glom Filtration Rate 38 ML/MIN; Glucose 107 MG/DL (74-106); Osmolality,Calculated 288.3 MOS/KG (273-304); Potassium 3.6 MMOL/L (3.5-5.1); Sodium 141 MMOL/L (136-145); Total Protein 6.8 G/DL (6.4-8.2)
[2021-02-28] MEDS: cefTRIAXone 1,000 MG in SODIUM CHLORIDE 0.9% 100 ML IV SCH (10:34)
[2021-02-28] MEDS: FAMOTIDINE 20 MG TABLET PO SCH ×2 (10:36→20:31)
[2021-02-28] MEDS: buPROPion 75 MG TABLET PO SCH ×2 (10:36→20:30)
[2021-02-28] MEDS: SENNA 8.6 MG TABLET PO SCH ×2 (10:36→20:31)
[2021-02-28] MEDS: OXcarbazepine 300 MG TABLET PO SCH (10:36)
[2021-02-28] MEDS: MULTIVITAMIN (CENTRUM) TABLET PO SCH (10:36)
[2021-02-28] MEDS: ASCORBIC ACID 500 MG TABLET PO SCH ×2 (10:37→20:31)
[2021-02-28] MEDS: CHOLECALCIFEROL 1,000 UNIT TABLET PO SCH (10:37)
[2021-02-28] MEDS: ZINC GLUCONATE 50 MG TABLET PO SCH (10:37)
[2021-02-28] MEDS: ASPIRIN EC 81 MG TABLET PO SCH (10:37)
[2021-02-28] MEDS: FUROSEMIDE 40 MG TABLET PO SCH (10:38)
[2021-02-28] MEDS: predniSONE 20 MG TABLET PO SCH (10:38)
[2021-02-28] MEDS: APIXABAN 5 MG TABLET PO SCH ×2 (10:38→20:31)
[2021-02-28] MEDS: CETIRIZINE 10 MG TABLET PO SCH (10:38)
[2021-02-28] MEDS: AMIODARONE 200 MG TABLET PO SCH (10:38)
[2021-02-28] MEDS: OMEGA 3 ACID ETHYL ESTERS 1 GM CAPSULE PO SCH ×2 (10:38→20:31)
[2021-02-28] MEDS: MENTHOL/ZINC OXIDE OINT 71 GM JAR TOP SCH ×3 (10:39→20:31)
[2021-02-28] MEDS: POLYETHYLENE GLYCOL POWDER 17 GM PACK PO SCH (10:39)
[2021-02-28] MEDS: INSULIN REGULAR 100 UNIT/ML SUBCUT SCH ×4 (11:28→20:32)
[2021-02-28] MEDS: AZITHROMYCIN INJ 500 MG in SODIUM CHLORIDE 0.9% 250 ML IV SCH (15:19)
[2021-02-28] MEDS: risperiDONE 0.25 MG TABLET PO SCH (20:30)
[2021-02-28] MEDS: MELATONIN 3 MG TABLET PO PRN (20:31)
[2021-03-01] MEDS: ALBUTEROL INHALER 18 GM INH SCH ×3 (01:45→17:10)
[2021-03-01 06:47] LABS: Basophils % 0.2 % (0.0-0.8); Eosinophils # 0.1 10*3/uL (0.0-0.87); Eosinophils % 0.9 % (0.00-10.9); Hematocrit 31.8 VOL% (42.0-52.0); Hemoglobin 10.2 GM/DL (14.0-18.0); Immature Granulocytes % 3.8 %; Immature Granulocytes Absolute 0.44 #; Lymphocytes % 8.3 % (21.2-54.2); Mean Corpuscular HGB Conc 32.1 GM/DL (32-36); Mean Corpuscular Volume 92.4 FL (87-102); Monocytes % 7.6 % (1.7-12.7); NRBC # 0.02 10*3/uL; Neutrophils % 79.2 % (38.7-73.9); Platelet Count 359 T/CUMM (130-400); Red Blood Count 3.44 MC/CUMM (3.8-5.5); Red Cell Distribution Width 14.6 % (9.3-17.3); White Blood Count 11.7 T/CUMM (4-12)
[2021-03-01 07:09] LABS: Alanine Aminotransferase 66 U/L (16-61); Albumin 2.4 G/DL (3.4-5.0); Alkaline Phosphatase 51 U/L (45-117); Aspartate Amino Transferase 31 U/L (0-37); Bilirubin,Total < 0.39 MG/DL (0.20-1.00); Blood Urea Nitrogen 39 MG/DL (7-18); Calcium 8.3 MG/DL (8.5-10.1); Carbon Dioxide 24 MMOL/L (21-32); Estimated Glom Filtration Rate 45 ML/MIN; Glucose 110 MG/DL (74-106); Osmolality,Calculated 292.1 MOS/KG (273-304); Potassium 3.6 MMOL/L (3.5-5.1); Sodium 142 MMOL/L (136-145); Total Protein 6.5 G/DL (6.4-8.2)
[2021-03-01] MEDS: INSULIN REGULAR 100 UNIT/ML SUBCUT SCH ×2 (08:29→12:11)
[2021-03-01] MEDS: POLYETHYLENE GLYCOL POWDER 17 GM PACK PO SCH (09:47)
[2021-03-01] MEDS: ASPIRIN EC 81 MG TABLET PO SCH (09:47)
[2021-03-01] MEDS: ASCORBIC ACID 500 MG TABLET PO SCH (09:48)
[2021-03-01] MEDS: CHOLECALCIFEROL 1,000 UNIT TABLET PO SCH (09:48)
[2021-03-01] MEDS: CETIRIZINE 10 MG TABLET PO SCH (09:48)
[2021-03-01] MEDS: buPROPion 75 MG TABLET PO SCH (09:48)
[2021-03-01] MEDS: OMEGA 3 ACID ETHYL ESTERS 1 GM CAPSULE PO SCH (09:49)
[2021-03-01] MEDS: FAMOTIDINE 20 MG TABLET PO SCH (09:49)
[2021-03-01] MEDS: MULTIVITAMIN (CENTRUM) TABLET PO SCH (09:49)
[2021-03-01] MEDS: SENNA 8.6 MG TABLET PO SCH (09:49)
[2021-03-01] MEDS: ZINC GLUCONATE 50 MG TABLET PO SCH (09:50)
[2021-03-01] MEDS: AMIODARONE 200 MG TABLET PO SCH (09:50)
[2021-03-01] MEDS: FUROSEMIDE 40 MG TABLET PO SCH (09:50)
[2021-03-01] MEDS: OXcarbazepine 300 MG TABLET PO SCH (09:50)
[2021-03-01] MEDS: APIXABAN 5 MG TABLET PO SCH (09:50)
[2021-03-01] MEDS: predniSONE 20 MG TABLET PO SCH (09:50)
[2021-03-01] MEDS: MENTHOL/ZINC OXIDE OINT 71 GM JAR TOP SCH ×2 (09:51→17:10)
[2021-03-01] MEDS: LINACLOTIDE 145 MCG CAPSULE PO SCH (09:51)
[2021-03-01] MEDS: cefTRIAXone 1,000 MG in SODIUM CHLORIDE 0.9% 100 ML IV SCH (11:16)
[2021-03-01] MEDS ORDERED: ISOSORBIDE DINITRATE 20 MG TABLET PO SCH (13:00)
[2021-03-01] MEDS ORDERED: LOSARTAN 50 MG TABLET PO SCH (13:00)
[2021-03-01] MEDS ORDERED: METOPROLOL TARTRATE 100 MG TABLET PO SCH (13:00)
[2021-03-01 16:05] VITALS: BP 95/61
== END 2021-03-01 16:18 | DRG 178 ==
LOC: EDUNIT# → SUATTDRO → EDBD → N.EDINP 11:09 → N.ED 11:09 → SUATTDRO 15:45 → N.5E 02-25 17:40 → SUATTDRO 02-27 15:05
PROVIDERS: ADMIT Internal Medicine; ATTEND Internal Medicine

== ENCOUNTER 2021-05-19 13:10 | Inpatient (IN) ==
[2021-05-19] MEDS ORDERED: VANCOMYCIN INJ 1,000 MG in SODIUM CHLORIDE 0.9% 250 ML IV STA (13:43)
[2021-05-19 13:52] LABS: Basophils % 0.4 % (0.0-0.8); Eosinophils # 0.2 10*3/uL (0.0-0.87); Hemoglobin 10.8 GM/DL (14.0-18.0); Immature Granulocytes % 0.5 %; Immature Granulocytes Absolute 0.04 #; Lymphocytes # 1.2 10*3/uL (1.4-4.0); Lymphocytes % 16.1 % (21.2-54.2); Mean Corpuscular HGB Conc 31.8 GM/DL (32-36); Mean Corpuscular Volume 96.3 FL (87-102); Mean Platelet Volume 8.4 FL (9.6-12.0); Monocytes % 4.4 % (1.7-12.7); Neutrophils % 75.6 % (38.7-73.9); Platelet Count 430 T/CUMM (130-400); Red Blood Count 3.53 MC/CUMM (3.8-5.5); Red Cell Distribution Width 15.1 % (9.3-17.3); White Blood Count 7.3 T/CUMM (4-12)
[2021-05-19 14:10] LABS: Alanine Aminotransferase 14 U/L (16-61); Albumin 2.9 G/DL (3.4-5.0); Alkaline Phosphatase 77 U/L (45-117); Aspartate Amino Transferase 15 U/L (0-37); Bilirubin,Total < 0.39 MG/DL (0.20-1.00); Blood Urea Nitrogen 30 MG/DL (7-18); Estimated Glom Filtration Rate 48 ML/MIN; Glucose 132 MG/DL (74-106); Osmolality,Calculated 284.5 MOS/KG (273-304); Potassium 4.4 MMOL/L (3.5-5.1); Sodium 139 MMOL/L (136-145); Total Protein 7.3 G/DL (6.4-8.2)
[2021-05-19 14:11] LABS: Carbon Dioxide 26 MMOL/L (21-32)
[2021-05-19] MEDS ORDERED: GLUCAGON 1 MG VIAL IM PRN (14:22)
[2021-05-19] MEDS ORDERED: ACETAMINOPHEN 325 MG TABLET PO PRN (14:22)
[2021-05-19] MEDS ORDERED: hydrALAZINE 20 MG/1 ML VIAL IV PRN (14:22)
[2021-05-19] MEDS ORDERED: LACTULOSE 20 GM/30 ML UDCUP PO PRN (14:22)
[2021-05-19] MEDS ORDERED: DOCUSATE SODIUM 100 MG CAPSULE PO PRN (14:22)
[2021-05-19] MEDS ORDERED: ALUMINUM/MAGNES/SIMETH MAX STR 30 ML UDCUP PO PRN (14:22)
[2021-05-19] MEDS ORDERED: ONDANSETRON 4 MG/2 ML VIAL IV PRN (14:22)
[2021-05-19] MEDS ORDERED: DEXTROSE 10% 250 ML BAG IV PRN (14:32)
[2021-05-19] MEDS: SODIUM CHLORIDE 0.9% 1,000 ML IV SCH (14:40)
[2021-05-19] MEDS ORDERED: ENOXAPARIN 30 MG/0.3 ML SYRINGE SUBCUT SCH (15:00)
[2021-05-19 15:03] LABS: Sedimentation Rate-Westergren 107 MM/HR (0-20)
[2021-05-19] MEDS: cefTRIAXone 1,000 MG in SODIUM CHLORIDE 0.9% 100 ML IV SCH (15:37)
[2021-05-19] MEDS ORDERED: VANCOMYCIN INJ 1,000 MG in SODIUM CHLORIDE 0.9% 250 ML IV ONE ×2 (16:00→17:00)
[2021-05-19] MEDS: INSULIN LISPRO 100 UNIT/ML SUBCUT SCH ×2 (16:28→22:08)
[2021-05-19] MEDS: risperiDONE 0.25 MG TABLET PO SCH (21:30)
[2021-05-19] MEDS: METOPROLOL TARTRATE 50 MG TABLET PO SCH (21:30)
[2021-05-19] MEDS: ISOSORBIDE DINITRATE 20 MG TABLET PO SCH (21:30)
[2021-05-19] MEDS: hydrALAZINE 10 MG TABLET PO SCH (21:31)
[2021-05-20 05:41] LABS: Basophils % 0.4 % (0.0-0.8); Eosinophils # 0.2 10*3/uL (0.0-0.87); Eosinophils % 3.5 % (0.00-10.9); Hematocrit 29.5 VOL% (42.0-52.0); Hemoglobin 9.5 GM/DL (14.0-18.0); Immature Granulocytes % 0.3 %; Immature Granulocytes Absolute 0.02 #; Lymphocytes # 1.2 10*3/uL (1.4-4.0); Lymphocytes % 17.7 % (21.2-54.2); Mean Corpuscular HGB Conc 32.2 GM/DL (32-36); Mean Corpuscular Volume 96.1 FL (87-102); Mean Platelet Volume 8.4 FL (9.6-12.0); Monocytes % 6.6 % (1.7-12.7); Neutrophils % 71.5 % (38.7-73.9); Platelet Count 411 T/CUMM (130-400); Red Blood Count 3.07 MC/CUMM (3.8-5.5); Red Cell Distribution Width 15.2 % (9.3-17.3); White Blood Count 6.8 T/CUMM (4-12)
[2021-05-20 06:10] LABS: Alanine Aminotransferase 10 U/L (16-61); Albumin 2.5 G/DL (3.4-5.0); Alkaline Phosphatase 71 U/L (45-117); Aspartate Amino Transferase 12 U/L (0-37); Bilirubin,Total < 0.39 MG/DL (0.20-1.00); Blood Urea Nitrogen 32 MG/DL (7-18); Calcium 8.5 MG/DL (8.5-10.1); Carbon Dioxide 27 MMOL/L (21-32); Estimated Glom Filtration Rate 40 ML/MIN; Glucose 89 MG/DL (74-106); Osmolality,Calculated 288.1 MOS/KG (273-304); Sodium 142 MMOL/L (136-145); Total Protein 6.1 G/DL (6.4-8.2)
[2021-05-20] MEDS: SODIUM CHLORIDE 0.9% 1,000 ML IV SCH ×3 (07:28→16:21)
[2021-05-20] MEDS: INSULIN LISPRO 100 UNIT/ML SUBCUT SCH ×4 (07:29→20:33)
[2021-05-20] MEDS: AMIODARONE 200 MG TABLET PO SCH (08:41)
[2021-05-20] MEDS: METOPROLOL TARTRATE 50 MG TABLET PO SCH ×2 (08:43→20:31)
[2021-05-20] MEDS ORDERED: VANCOMYCIN INJ 1,500 MG in SODIUM CHLORIDE 0.9% 500 ML IV PRN (08:52)
[2021-05-20] MEDS: OXcarbazepine 300 MG TABLET PO SCH (08:52)
[2021-05-20] MEDS: ASPIRIN CHEW 81 MG TABLET PO SCH (08:53)
[2021-05-20] MEDS: hydrALAZINE 10 MG TABLET PO SCH ×2 (08:53→20:32)
[2021-05-20] MEDS: PANTOPRAZOLE 40 MG TABLET PO SCH (08:54)
[2021-05-20] MEDS: ISOSORBIDE DINITRATE 20 MG TABLET PO SCH ×2 (08:54→20:32)
[2021-05-20] MEDS: predniSONE 1 MG TABLET PO SCH (11:46)
[2021-05-20] MEDS: buPROPion 75 MG TABLET PO SCH ×2 (11:47→20:32)
[2021-05-20] MEDS ORDERED: MIDAZOLAM 2 MG/2 ML VIAL ONE (11:53)
[2021-05-20] MEDS ORDERED: fentaNYL 100 MCG/2 ML VIAL ONE (11:53)
[2021-05-20] MEDS ORDERED: KETAMINE 500 MG/10 ML VIAL ONE (11:53)
[2021-05-20] MEDS ORDERED: LIDOCAINE 1% 50 ML VIAL ONE (11:59)
[2021-05-20] MEDS: DOCUSATE SODIUM 100 MG CAPSULE PO SCH ×4 (12:21→20:32)
[2021-05-20] MEDS ORDERED: SODIUM CHLORIDE 0.9% 250 ML IV SCH (12:30)
[2021-05-20] MEDS ORDERED: diphenhydrAMINE 50 MG/1 ML VIAL IV PRN (13:00)
[2021-05-20] MEDS ORDERED: MEPERIDINE 25 MG/1 ML VIAL IV PRN (13:00)
[2021-05-20] MEDS ORDERED: PROMETHAZINE INJ 25 MG in SODIUM CHLORIDE 0.9% 50 ML IV PRN (13:00)
[2021-05-20] MEDS ORDERED: ONDANSETRON 4 MG/2 ML VIAL IV PRN (13:00)
[2021-05-20] MEDS: MORPHINE 4 MG/1 ML VIAL IV PRN ×2 (15:33→20:31)
[2021-05-20] MEDS: cefTRIAXone 1,000 MG in SODIUM CHLORIDE 0.9% 100 ML IV SCH (15:34)
[2021-05-20] MEDS: CARBOXYMETHYLCELLULOSE 1% OPH SOLN BOTH EYES SCH (20:30)
[2021-05-20] MEDS: risperiDONE 0.25 MG TABLET PO SCH (20:31)
[2021-05-20] MEDS: MULTIVITAMIN (INTRINSIC) CAPSULE PO SCH (20:31)
[2021-05-20] MEDS: SENNA 8.6 MG TABLET PO SCH (20:32)
[2021-05-20] MEDS: OMEGA 3 ACID ETHYL ESTERS 1 GM CAPSULE PO SCH (20:32)
[2021-05-20] MEDS ORDERED: CETIRIZINE 10 MG TABLET PO SCH (21:00)
[2021-05-21] MEDS: ALBUTEROL 2.5 MG/3 ML NEB RESP TX SCH ×3 (01:47→07:10)
[2021-05-21] MEDS ORDERED: LINACLOTIDE 145 MCG CAPSULE PO SCH (06:00)
[2021-05-21 06:13] LABS: Basophils % 0.2 % (0.0-0.8); Eosinophils # 0.2 10*3/uL (0.0-0.87); Eosinophils % 3.6 % (0.00-10.9); Hematocrit 26.2 VOL% (42.0-52.0); Hemoglobin 8.2 GM/DL (14.0-18.0); Immature Granulocytes % 0.3 %; Immature Granulocytes Absolute 0.02 #; Lymphocytes # 0.8 10*3/uL (1.4-4.0); Lymphocytes % 12.3 % (21.2-54.2); Mean Corpuscular HGB Conc 31.3 GM/DL (32-36); Mean Corpuscular Volume 98.1 FL (87-102); Mean Platelet Volume 8.6 FL (9.6-12.0); Monocytes % 8.6 % (1.7-12.7); Platelet Count 345 T/CUMM (130-400); Red Blood Count 2.67 MC/CUMM (3.8-5.5); Red Cell Distribution Width 15.4 % (9.3-17.3); White Blood Count 6.7 T/CUMM (4-12)
[2021-05-21 06:27] LABS: Calcium 7.9 MG/DL (8.5-10.1); Osmolality,Calculated 289.1 MOS/KG (273-304)
[2021-05-21] MEDS: ASPIRIN CHEW 81 MG TABLET PO SCH (08:42)
[2021-05-21] MEDS: MULTIVITAMIN (INTRINSIC) CAPSULE PO SCH (08:42)
[2021-05-21] MEDS: OXcarbazepine 300 MG TABLET PO SCH (08:42)
[2021-05-21] MEDS: buPROPion 75 MG TABLET PO SCH (08:43)
[2021-05-21] MEDS: hydrALAZINE 10 MG TABLET PO SCH (08:43)
[2021-05-21] MEDS: AMIODARONE 200 MG TABLET PO SCH (08:44)
[2021-05-21] MEDS: DOCUSATE SODIUM 100 MG CAPSULE PO SCH ×2 (08:44→15:31)
[2021-05-21] MEDS: OMEGA 3 ACID ETHYL ESTERS 1 GM CAPSULE PO SCH (08:44)
[2021-05-21] MEDS: predniSONE 1 MG TABLET PO SCH (08:44)
[2021-05-21] MEDS: METOPROLOL TARTRATE 50 MG TABLET PO SCH (08:45)
[2021-05-21] MEDS: PANTOPRAZOLE 40 MG TABLET PO SCH (08:45)
[2021-05-21] MEDS: ISOSORBIDE DINITRATE 20 MG TABLET PO SCH (08:45)
[2021-05-21] MEDS: CARBOXYMETHYLCELLULOSE 1% OPH SOLN BOTH EYES SCH (08:45)
[2021-05-21] MEDS: SENNA 8.6 MG TABLET PO SCH (08:45)
[2021-05-21] MEDS: INSULIN LISPRO 100 UNIT/ML SUBCUT SCH ×2 (08:47→13:12)
[2021-05-21] MEDS ORDERED: MULTIVITAMIN (CENTRUM) TABLET PO SCH (09:00)
[2021-05-21] MEDS ORDERED: ERGOCALCIFEROL 50,000 UNIT CAPSULE PO SCH (09:00)
[2021-05-21] MEDS ORDERED: POLYETHYLENE GLYCOL POWDER 17 GM PACK PO SCH (09:00)
[2021-05-21] MEDS ORDERED: ZINC GLUCONATE 50 MG TABLET PO SCH (09:00)
[2021-05-21 09:49] LABS: % Iron Saturation 17.9 % (18-50); Ferritin 135.7 ng/mL (26-388)
[2021-05-21 09:52] LABS: Folate > 24.00 NG/ML (5.38-24.0); Vitamin B12 1008 PG/ML (211-911)
[2021-05-21] MEDS ORDERED: LEVOFLOXACIN 500 MG TABLET PO SCH (11:00)
[2021-05-21 12:19] VITALS: BP 127/68
[2021-05-21] MEDS ORDERED: ZINC OXIDE PASTE 113 GM TUBE TOP SCH (14:00)
== END 2021-05-21 15:16 | DRG 617 ==
LOC: EDBD → EDUNIT# → N.ED 13:10 → N.EDINP 14:23 → SUATTDRO 14:23 → N.5E 18:17
PROVIDERS: ADMIT Internal Medicine; ATTEND Internal Medicine

== ENCOUNTER 2021-08-26 09:52 | Inpatient (IN) ==
[2021-08-26 11:20] LABS: Basophils % 0.2 % (0.0-0.8); Eosinophils # 0.1 10*3/uL (0.0-0.87); Eosinophils % 2.5 % (0.00-10.9); Hematocrit 36.8 VOL% (42.0-52.0); Immature Granulocytes % 0.4 %; Immature Granulocytes Absolute 0.02 #; Lymphocytes # 1.3 10*3/uL (1.4-4.0); Lymphocytes % 23.2 % (21.2-54.2); Mean Corpuscular HGB Conc 32.6 GM/DL (32-36); Mean Corpuscular Volume 92.9 FL (87-102); Monocytes # 0.3 10*3/uL (0.11-0.8); Monocytes % 5.6 % (1.7-12.7); Neutrophils % 68.1 % (38.7-73.9); Platelet Count 356 T/CUMM (130-400); Red Blood Count 3.96 MC/CUMM (3.8-5.5); Red Cell Distribution Width 14.8 % (9.3-17.3); White Blood Count 5.6 T/CUMM (4-12)
[2021-08-26 11:40] LABS: Calcium 9.2 MG/DL (8.5-10.1); Osmolality,Calculated 278.8 MOS/KG (273-304); Potassium 4.4 MMOL/L (3.5-5.1)
[2021-08-26] MEDS ORDERED: hydrALAZINE 20 MG/1 ML VIAL IV PRN (13:25)
[2021-08-26] MEDS ORDERED: ACETAMINOPHEN 325 MG TABLET PO PRN (13:25)
[2021-08-26] MEDS ORDERED: GLUCAGON 1 MG VIAL IM PRN (13:25)
[2021-08-26] MEDS ORDERED: ONDANSETRON 4 MG/2 ML VIAL IV PRN (13:25)
[2021-08-26] MEDS ORDERED: PIPERACILLIN/TAZOBACTAM 3,375 MG in SODIUM CHLORIDE 0.9% 100 ML IV SCH (13:30)
[2021-08-26] MEDS ORDERED: DEXTROSE 10% 250 ML BAG IV PRN (13:52)
[2021-08-26] MEDS ORDERED: ALBUTEROL 2.5 MG/3 ML NEB RESP TX PRN (13:53)
[2021-08-26] MEDS: INSULIN LISPRO 100 UNIT/ML SUBCUT SCH ×2 (17:02→21:44)
[2021-08-26] MEDS: VANCOMYCIN INJ 1,500 MG in SODIUM CHLORIDE 0.9% 500 ML IV SCH (17:02)
[2021-08-26] MEDS: PIPERACILLIN/TAZOBACTAM 3,375 MG in SODIUM CHLORIDE 0.9% 100 ML IV SCH (17:02)
[2021-08-26] MEDS ORDERED: DOCUSATE SODIUM 100 MG CAPSULE PO SCH (21:00)
[2021-08-26] MEDS: MULTIVITAMIN (INTRINSIC) CAPSULE PO SCH (21:19)
[2021-08-26] MEDS: buPROPion 75 MG TABLET PO SCH (21:19)
[2021-08-26] MEDS: risperiDONE 0.25 MG TABLET PO SCH (21:19)
[2021-08-26] MEDS: METOPROLOL TARTRATE 100 MG TABLET PO SCH (21:20)
[2021-08-26] MEDS: CETIRIZINE 10 MG TABLET PO SCH (21:20)
[2021-08-26] MEDS: ISOSORBIDE DINITRATE 20 MG TABLET PO SCH (21:20)
[2021-08-26] MEDS: DOCUSATE/SENNA 50-8.6 MG TABLET PO SCH (21:22)
[2021-08-26] MEDS: OMEGA 3 ACID ETHYL ESTERS 1 GM CAPSULE PO SCH (21:23)
[2021-08-26] MEDS: FLUTICASONE 50 MCG NASAL SPRAY 16 GM BOTTLE BOTH NARES SCH (21:23)
[2021-08-26] MEDS: CARBOXYMETHYLCELLULOSE 1% OPH SOLN BOTH EYES SCH (21:24)
[2021-08-26] MEDS: HEPARIN 5,000 UNIT/1 ML VIAL SUBCUT SCH (21:28)
[2021-08-27] MEDS: PIPERACILLIN/TAZOBACTAM 3,375 MG in SODIUM CHLORIDE 0.9% 100 ML IV SCH ×3 (01:55→16:44)
[2021-08-27 05:52] LABS: Basophils % 0.5 % (0.0-0.8); Eosinophils # 0.1 10*3/uL (0.0-0.87); Eosinophils % 2.7 % (0.00-10.9); Hematocrit 28.7 VOL% (42.0-52.0); Hemoglobin 9.3 GM/DL (14.0-18.0); Immature Granulocytes % 0.7 %; Immature Granulocytes Absolute 0.03 #; Lymphocytes # 1.1 10*3/uL (1.4-4.0); Lymphocytes % 24.2 % (21.2-54.2); Mean Corpuscular HGB Conc 32.4 GM/DL (32-36); Mean Corpuscular Volume 94.4 FL (87-102); Mean Platelet Volume 8.5 FL (9.6-12.0); Monocytes # 0.4 10*3/uL (0.11-0.8); Monocytes % 9.5 % (1.7-12.7); Neutrophils % 62.4 % (38.7-73.9); Platelet Count 290 T/CUMM (130-400); Red Blood Count 3.04 MC/CUMM (3.8-5.5); Red Cell Distribution Width 14.9 % (9.3-17.3); White Blood Count 4.4 T/CUMM (4-12)
[2021-08-27 06:15] LABS: Calcium 8.6 MG/DL (8.5-10.1); Osmolality,Calculated 284.5 MOS/KG (273-304); Potassium 4.2 MMOL/L (3.5-5.1)
[2021-08-27] MEDS ORDERED: ERGOCALCIFEROL 50,000 UNIT CAPSULE PO SCH (09:00)
[2021-08-27] MEDS ORDERED: fentaNYL 100 MCG/2 ML VIAL ONE (09:05)
[2021-08-27] MEDS ORDERED: propofoL 200 MG/20 ML VIAL IV ONE (09:05)
[2021-08-27] MEDS ORDERED: LIDOCAINE 2% 5 ML VIAL ONE (09:05)
[2021-08-27] MEDS ORDERED: MIDAZOLAM 2 MG/2 ML VIAL ONE (09:05)
[2021-08-27] MEDS ORDERED: ePHEDrine 50 MG/ML VIAL ONE (09:34)
[2021-08-27] MEDS ORDERED: SEVOFLURANE 1 UNIT/15 MINUTE INH ONE (10:09)
[2021-08-27] MEDS ORDERED: SODIUM CHLORIDE 0.9% 1,000 ML IV ONE (10:09)
[2021-08-27] MEDS ORDERED: HYDROmorphone 1 MG/1 ML SYRINGE ONE (10:22)
[2021-08-27] MEDS ORDERED: ONDANSETRON 4 MG/2 ML VIAL IV PRN (10:24)
[2021-08-27] MEDS ORDERED: HYDROmorphone 1 MG/1 ML SYRINGE IV PRN (10:24)
[2021-08-27] MEDS ORDERED: LABETALOL 20 MG/4 ML SYRINGE IV ONE ×2 (10:36→10:49)
[2021-08-27] MEDS ORDERED: LABETALOL 100 MG/20 ML VIAL IV ONE (10:38)
[2021-08-27] MEDS ORDERED: DEXTROSE 50% 25 GM/50 ML VIAL IV PRN (11:10)
[2021-08-27] MEDS ORDERED: GLUCAGON 1 MG VIAL IM PRN (11:10)
[2021-08-27] MEDS: OXcarbazepine 300 MG TABLET PO SCH (12:17)
[2021-08-27] MEDS: OMEGA 3 ACID ETHYL ESTERS 1 GM CAPSULE PO SCH ×2 (12:17→21:25)
[2021-08-27] MEDS: ISOSORBIDE DINITRATE 20 MG TABLET PO SCH ×2 (12:18→21:25)
[2021-08-27] MEDS: MULTIVITAMIN (INTRINSIC) CAPSULE PO SCH ×2 (12:18→21:27)
[2021-08-27] MEDS: AMIODARONE 200 MG TABLET PO SCH (12:18)
[2021-08-27] MEDS: ASPIRIN EC 81 MG TABLET PO SCH (12:18)
[2021-08-27] MEDS: ZINC GLUCONATE 50 MG TABLET PO SCH (12:18)
[2021-08-27] MEDS: PANTOPRAZOLE 40 MG TABLET PO SCH (12:18)
[2021-08-27] MEDS: MULTIVITAMIN (CENTRUM) TABLET PO SCH (12:18)
[2021-08-27] MEDS: allopurinoL 100 MG TABLET PO SCH ×2 (12:19→12:36)
[2021-08-27] MEDS: POTASSIUM CHLORIDE 10 MEQ TABLET PO SCH ×2 (12:19→21:26)
[2021-08-27] MEDS: HEPARIN 5,000 UNIT/1 ML VIAL SUBCUT SCH ×2 (12:20→21:28)
[2021-08-27] MEDS: INSULIN LISPRO 100 UNIT/ML SUBCUT SCH ×4 (12:20→21:55)
[2021-08-27] MEDS: buPROPion 75 MG TABLET PO SCH ×2 (12:21→21:26)
[2021-08-27] MEDS: METOPROLOL TARTRATE 100 MG TABLET PO SCH (12:21)
[2021-08-27] MEDS: CARBOXYMETHYLCELLULOSE 1% OPH SOLN BOTH EYES SCH ×2 (12:27→21:34)
[2021-08-27] MEDS: FLUTICASONE 50 MCG NASAL SPRAY 16 GM BOTTLE BOTH NARES SCH ×2 (12:27→21:27)
[2021-08-27] MEDS: POLYETHYLENE GLYCOL POWDER 17 GM PACK PO SCH (12:47)
[2021-08-27] MEDS: ZINC OXIDE PASTE 113 GM TUBE TOP SCH ×2 (14:32→21:28)
[2021-08-27] MEDS: MORPHINE 2 MG/1 ML SYRINGE IV PRN ×2 (14:32→21:33)
[2021-08-27] MEDS: risperiDONE 0.25 MG TABLET PO SCH (21:25)
[2021-08-27] MEDS: DOCUSATE/SENNA 50-8.6 MG TABLET PO SCH (21:25)
[2021-08-27] MEDS: CETIRIZINE 10 MG TABLET PO SCH (21:25)
[2021-08-27] MEDS: VANCOMYCIN INJ 1,500 MG in SODIUM CHLORIDE 0.9% 500 ML IV SCH (21:35)
[2021-08-28] MEDS: PIPERACILLIN/TAZOBACTAM 3,375 MG in SODIUM CHLORIDE 0.9% 100 ML IV SCH ×3 (00:25→17:22)
[2021-08-28 05:47] LABS: Basophils % 0.5 % (0.0-0.8); Eosinophils # 0.2 10*3/uL (0.0-0.87); Eosinophils % 3.8 % (0.00-10.9); Hematocrit 30.4 VOL% (42.0-52.0); Hemoglobin 9.6 GM/DL (14.0-18.0); Immature Granulocytes % 0.5 %; Immature Granulocytes Absolute 0.03 #; Lymphocytes # 1.1 10*3/uL (1.4-4.0); Lymphocytes % 19.2 % (21.2-54.2); Mean Corpuscular HGB Conc 31.6 GM/DL (32-36); Mean Corpuscular Volume 96.5 FL (87-102); Mean Platelet Volume 8.8 FL (9.6-12.0); Monocytes # 0.5 10*3/uL (0.11-0.8); Monocytes % 9.8 % (1.7-12.7); Neutrophils % 66.2 % (38.7-73.9); Platelet Count 325 T/CUMM (130-400); Red Blood Count 3.15 MC/CUMM (3.8-5.5); Red Cell Distribution Width 15.2 % (9.3-17.3); White Blood Count 5.5 T/CUMM (4-12)
[2021-08-28 06:19] LABS: Calcium 8.3 MG/DL (8.5-10.1); Osmolality,Calculated 287.4 MOS/KG (273-304); Potassium 4.1 MMOL/L (3.5-5.1)
[2021-08-28] MEDS: ZINC GLUCONATE 50 MG TABLET PO SCH (09:11)
[2021-08-28] MEDS: buPROPion 75 MG TABLET PO SCH ×2 (09:11→21:46)
[2021-08-28] MEDS: POLYETHYLENE GLYCOL POWDER 17 GM PACK PO SCH (09:11)
[2021-08-28] MEDS: MULTIVITAMIN (CENTRUM) TABLET PO SCH (09:12)
[2021-08-28] MEDS: MULTIVITAMIN (INTRINSIC) CAPSULE PO SCH ×2 (09:12→21:47)
[2021-08-28] MEDS: POTASSIUM CHLORIDE 10 MEQ TABLET PO SCH ×2 (09:12→21:45)
[2021-08-28] MEDS: allopurinoL 100 MG TABLET PO SCH (09:12)
[2021-08-28] MEDS: PANTOPRAZOLE 40 MG TABLET PO SCH (09:12)
[2021-08-28] MEDS: ASPIRIN EC 81 MG TABLET PO SCH (09:12)
[2021-08-28] MEDS: OMEGA 3 ACID ETHYL ESTERS 1 GM CAPSULE PO SCH ×2 (09:13→21:47)
[2021-08-28] MEDS: AMIODARONE 200 MG TABLET PO SCH (09:13)
[2021-08-28] MEDS: ISOSORBIDE DINITRATE 20 MG TABLET PO SCH ×2 (09:13→21:45)
[2021-08-28] MEDS: OXcarbazepine 300 MG TABLET PO SCH (09:13)
[2021-08-28] MEDS: INSULIN LISPRO 100 UNIT/ML SUBCUT SCH ×4 (09:14→20:18)
[2021-08-28] MEDS: CARBOXYMETHYLCELLULOSE 1% OPH SOLN BOTH EYES SCH ×2 (09:14→21:47)
[2021-08-28] MEDS: HEPARIN 5,000 UNIT/1 ML VIAL SUBCUT SCH ×2 (09:15→21:47)
[2021-08-28] MEDS: ZINC OXIDE PASTE 113 GM TUBE TOP SCH ×2 (09:15→21:43)
[2021-08-28] MEDS: FLUTICASONE 50 MCG NASAL SPRAY 16 GM BOTTLE BOTH NARES SCH ×2 (09:15→21:43)
[2021-08-28] MEDS: METOPROLOL TARTRATE 100 MG TABLET PO SCH ×2 (09:16→21:47)
[2021-08-28] MEDS: LACTATED RINGERS 1,000 ML IV SCH ×2 (09:27→21:48)
[2021-08-28] MEDS: MORPHINE 2 MG/1 ML SYRINGE IV PRN ×3 (10:44→21:43)
[2021-08-28] MEDS: DOCUSATE/SENNA 50-8.6 MG TABLET PO SCH (21:44)
[2021-08-28] MEDS: CETIRIZINE 10 MG TABLET PO SCH (21:44)
[2021-08-28] MEDS: risperiDONE 0.25 MG TABLET PO SCH (21:46)
[2021-08-28] MEDS: VANCOMYCIN INJ 1,500 MG in SODIUM CHLORIDE 0.9% 500 ML IV SCH (21:48)
[2021-08-29] MEDS: PIPERACILLIN/TAZOBACTAM 3,375 MG in SODIUM CHLORIDE 0.9% 100 ML IV SCH ×2 (01:43→10:11)
[2021-08-29 05:28] LABS: Basophils % 0.4 % (0.0-0.8); Eosinophils # 0.3 10*3/uL (0.0-0.87); Eosinophils % 5.4 % (0.00-10.9); Hematocrit 27.5 VOL% (42.0-52.0); Hemoglobin 8.6 GM/DL (14.0-18.0); Immature Granulocytes % 0.6 %; Immature Granulocytes Absolute 0.03 #; Lymphocytes # 1.1 10*3/uL (1.4-4.0); Mean Corpuscular HGB Conc 31.3 GM/DL (32-36); Mean Corpuscular Volume 96.2 FL (87-102); Mean Platelet Volume 8.8 FL (9.6-12.0); Monocytes # 0.5 10*3/uL (0.11-0.8); Monocytes % 9.7 % (1.7-12.7); Neutrophils % 61.9 % (38.7-73.9); Platelet Count 301 T/CUMM (130-400); Red Blood Count 2.86 MC/CUMM (3.8-5.5); Red Cell Distribution Width 15.3 % (9.3-17.3)
[2021-08-29 05:37] LABS: Calcium 8.3 MG/DL (8.5-10.1); Osmolality,Calculated 286.1 MOS/KG (273-304); Potassium 4.4 MMOL/L (3.5-5.1)
[2021-08-29] MEDS ORDERED: GLUCAGON 1 MG VIAL IM PRN (07:45)
[2021-08-29] MEDS ORDERED: DEXTROSE 10% 250 ML BAG IV PRN (07:45)
[2021-08-29] MEDS: MORPHINE 2 MG/1 ML SYRINGE IV PRN ×3 (10:01→22:35)
[2021-08-29] MEDS: HEPARIN 5,000 UNIT/1 ML VIAL SUBCUT SCH ×2 (10:13→22:28)
[2021-08-29] MEDS: MULTIVITAMIN (CENTRUM) TABLET PO SCH (10:16)
[2021-08-29] MEDS: ASPIRIN EC 81 MG TABLET PO SCH (10:16)
[2021-08-29] MEDS: MULTIVITAMIN (INTRINSIC) CAPSULE PO SCH ×2 (10:16→22:26)
[2021-08-29] MEDS: buPROPion 75 MG TABLET PO SCH ×2 (10:16→22:26)
[2021-08-29] MEDS: PANTOPRAZOLE 40 MG TABLET PO SCH (10:16)
[2021-08-29] MEDS: ZINC GLUCONATE 50 MG TABLET PO SCH (10:16)
[2021-08-29] MEDS: OMEGA 3 ACID ETHYL ESTERS 1 GM CAPSULE PO SCH ×2 (10:16→22:27)
[2021-08-29] MEDS: POTASSIUM CHLORIDE 10 MEQ TABLET PO SCH ×2 (10:16→22:26)
[2021-08-29] MEDS: ZINC OXIDE PASTE 113 GM TUBE TOP SCH ×2 (10:17→22:28)
[2021-08-29] MEDS: AMIODARONE 200 MG TABLET PO SCH (10:17)
[2021-08-29] MEDS: FLUTICASONE 50 MCG NASAL SPRAY 16 GM BOTTLE BOTH NARES SCH ×2 (10:17→22:28)
[2021-08-29] MEDS: POLYETHYLENE GLYCOL POWDER 17 GM PACK PO SCH (10:18)
[2021-08-29] MEDS: METOPROLOL TARTRATE 50 MG TABLET PO SCH ×2 (10:23→22:26)
[2021-08-29] MEDS: allopurinoL 100 MG TABLET PO SCH (10:23)
[2021-08-29] MEDS: ISOSORBIDE DINITRATE 20 MG TABLET PO SCH ×2 (10:23→22:26)
[2021-08-29] MEDS: LOSARTAN 50 MG TABLET PO SCH (10:23)
[2021-08-29] MEDS: OXcarbazepine 300 MG TABLET PO SCH (10:25)
[2021-08-29] MEDS: CARBOXYMETHYLCELLULOSE 1% OPH SOLN BOTH EYES SCH ×2 (10:25→22:28)
[2021-08-29] MEDS: INSULIN LISPRO 100 UNIT/ML SUBCUT SCH ×4 (10:30→22:29)
[2021-08-29] MEDS ORDERED: METOPROLOL TARTRATE 50 MG TABLET PO SCH (21:00)
[2021-08-29] MEDS: risperiDONE 0.25 MG TABLET PO SCH (22:26)
[2021-08-29] MEDS: CETIRIZINE 10 MG TABLET PO SCH (22:27)
[2021-08-29] MEDS: DOCUSATE/SENNA 50-8.6 MG TABLET PO SCH (22:27)
[2021-08-29] MEDS: VANCOMYCIN INJ 1,500 MG in SODIUM CHLORIDE 0.9% 500 ML IV SCH (23:12)
[2021-08-30 05:47] LABS: Basophils % 0.6 % (0.0-0.8); Eosinophils # 0.3 10*3/uL (0.0-0.87); Eosinophils % 5.7 % (0.00-10.9); Immature Granulocytes % 0.8 %; Immature Granulocytes Absolute 0.04 #; Lymphocytes # 1.1 10*3/uL (1.4-4.0); Lymphocytes % 21.2 % (21.2-54.2); Mean Corpuscular HGB Conc 32.1 GM/DL (32-36); Mean Corpuscular Volume 94.9 FL (87-102); Mean Platelet Volume 8.4 FL (9.6-12.0); Monocytes # 0.4 10*3/uL (0.11-0.8); Monocytes % 8.5 % (1.7-12.7); Neutrophils % 63.2 % (38.7-73.9); Platelet Count 310 T/CUMM (130-400); Red Blood Count 2.95 MC/CUMM (3.8-5.5); Red Cell Distribution Width 15.3 % (9.3-17.3); White Blood Count 5.1 T/CUMM (4-12)
[2021-08-30 06:05] LABS: Calcium 8.7 MG/DL (8.5-10.1); Osmolality,Calculated 281.4 MOS/KG (273-304); Potassium 4.4 MMOL/L (3.5-5.1)
[2021-08-30] MEDS: INSULIN LISPRO 100 UNIT/ML SUBCUT SCH ×3 (09:13→15:51)
[2021-08-30] MEDS: ZINC OXIDE PASTE 113 GM TUBE TOP SCH (10:05)
[2021-08-30] MEDS: MULTIVITAMIN (INTRINSIC) CAPSULE PO SCH (10:33)
[2021-08-30] MEDS: buPROPion 75 MG TABLET PO SCH (10:33)
[2021-08-30] MEDS: METOPROLOL TARTRATE 50 MG TABLET PO SCH (10:34)
[2021-08-30] MEDS: OXcarbazepine 300 MG TABLET PO SCH (10:34)
[2021-08-30] MEDS: ZINC GLUCONATE 50 MG TABLET PO SCH (10:34)
[2021-08-30] MEDS: ISOSORBIDE DINITRATE 20 MG TABLET PO SCH (10:34)
[2021-08-30] MEDS: ASPIRIN EC 81 MG TABLET PO SCH (10:34)
[2021-08-30] MEDS: AMIODARONE 200 MG TABLET PO SCH (10:35)
[2021-08-30] MEDS: CARBOXYMETHYLCELLULOSE 1% OPH SOLN BOTH EYES SCH (10:35)
[2021-08-30] MEDS: MULTIVITAMIN (CENTRUM) TABLET PO SCH (10:35)
[2021-08-30] MEDS: allopurinoL 100 MG TABLET PO SCH (10:35)
[2021-08-30] MEDS: LOSARTAN 50 MG TABLET PO SCH (10:35)
[2021-08-30] MEDS: PANTOPRAZOLE 40 MG TABLET PO SCH (10:35)
[2021-08-30] MEDS: FLUTICASONE 50 MCG NASAL SPRAY 16 GM BOTTLE BOTH NARES SCH (10:35)
[2021-08-30] MEDS: OMEGA 3 ACID ETHYL ESTERS 1 GM CAPSULE PO SCH (10:36)
[2021-08-30] MEDS: POTASSIUM CHLORIDE 10 MEQ TABLET PO SCH (10:36)
[2021-08-30] MEDS: POLYETHYLENE GLYCOL POWDER 17 GM PACK PO SCH (10:36)
[2021-08-30] MEDS: HEPARIN 5,000 UNIT/1 ML VIAL SUBCUT SCH (10:36)
[2021-08-30] MEDS: MORPHINE 2 MG/1 ML SYRINGE IV PRN ×2 (10:37→14:25)
[2021-08-30 16:19] VITALS: BP 145/61
[2021-08-30] MEDS ORDERED: VANCOMYCIN INJ 1,500 MG in SODIUM CHLORIDE 0.9% 500 ML IV SCH (18:00)
== END 2021-08-30 17:15 | DRG 617 ==
LOC: N.ED 09:52 → SUATTDRO 13:23 → N.EDINP 13:23 → N.5E 14:30
PROVIDERS: ADMIT Internal Medicine; ATTEND Emergency Medicine